=== PATIENT | male | born 1945 | race Caucasian/White ===

== ENCOUNTER 2018-09-15 14:26 | Emergency (ER) | payer MEDICARE ==
--- NOTE | 2018-09-15 14:48 | ED ---
GI/ HPI - HPI Summary HPI Summary: This pt is a 72 y/o male presenting to [facility] c/o difficulty voiding. Pt reports he has had a hard time voiding for "quite a while now." He notes it has been worsening lately. He states he passed urine a few minutes ago [employer] and "urine just dribbles out." Additionally reports slight burning with urination and lower abd discomfort. Denies fever, chills, nausea, vomiting. Denies hx of BPH. Pt does not have a urologist. - History of Current Complaint Chief Complaint: EDUrogenitalProblems Time Seen by Provider: 09/15/18 14:28 Stated Complaint: HARD TIME PASSING URINE PER PT Hx Obtained From: Patient Onset/Duration: Started Weeks Ago, Still Present Timing: Lasting Weeks Current Severity: Moderate Pain Intensity: 0 Location of Pain: Other - lower abd Associated Signs and Symptoms: Positive: Dysuria, Abdominal Pain, Other: - difficulty voiding. Negative: Nausea, Vomiting, Fever, Chills Aggravating Factor(s): Nothing Alleviating Factor(s): Nothing - Allergy/Home Medications Allergies/Adverse Reactions: Allergies Allergy/AdvReac Type Severity Reaction Status Date / Time MS Amoxicillin [From Amoxil] Allergy Intermediate Hives Verified 05/08/18 11:42 MS Sulfamethoxazole Allergy Intermediate Dizziness Verified 05/08/18 11:42 w/Trimethoprim [From Bactrim] Home Medications: Home Medications Allopurinol [Zyloprim 300 MG TAB] 300 mg PO DAILY 09/15/18 [History Confirmed ] Amantadine HCl [Amantadine] 100 mg PO BID 09/15/18 [History Confirmed 09/15/18] Atorvastatin* [Lipitor 10 MG*] 10 mg PO EVERY OTHER DAY 09/15/18 [History Confirmed 09/15/18] Rivaroxaban TAB(*) [Xarelto 20 mg] 20 mg PO DAILY 09/15/18 [History Confirmed ] Spironolactone 25 mg PO DAILY 09/15/18 [History Confirmed 09/15/18] Ubidecarenone [Coq10] 200 mg PO DAILY 09/15/18 [History Confirmed 09/15/18] PMH/Surg Hx/FS Hx/Imm Hx Endocrine/Hematology History: Denies: Hx Diabetes Cardiovascular History: Reports: Hx Hypercholesterolemia, Hx Hypertension - MEDICATED Denies: Hx Pacemaker/ICD Respiratory History: Denies: Hx Asthma, Hx Chronic Obstructive Pulmonary Disease (COPD) History: Denies: Hx Benign Prostatic Hyperplasia, Hx Renal Disease Sensory History: Denies: Hx Hearing Aid Psychiatric History: Denies: Hx Panic Disorder - Surgical History Surgery Procedure, Year, and Place: Rt KNEE - RECONSTRUCTION. Lt WRIST - ARTHROSCOPIC Infectious Disease History: No Infectious Disease History: Denies: Traveled Outside the [place] in Last 30 Days - Family History Known Family History: Negative: Cardiac Disease, Hypertension - Social History Alcohol Use: Occasionally Alcohol Amount: 2xweek Substance Use Type: Reports: None Smoking Status (MU): Never Smoked Tobacco Have You Smoked in the Last Year: No Review of Systems Negative: Fever, Chills Positive: Abdominal Pain. Negative: Vomiting, Nausea Genitourinary: Other - POS: difficulty voiding Positive: burning All Other Systems Reviewed And Are Negative: Yes Physical Exam - Summary Physical Exam Summary: VITAL SIGNS: Reviewed. GENERAL: Patient is a well-developed and nourished male who is lying comfortable in the stretcher. Patient is not in any acute respiratory distress. HEAD AND FACE: No signs of trauma. No ecchymosis, hematomas or skull depressions. No sinus tenderness. EYES: PERRLA, EOMI x 2, No injected conjunctiva, no nystagmus. EARS: Hearing grossly intact. Ear canals and tympanic membranes are within normal limits. MOUTH: Oropharynx within normal limits. NECK: Supple, trachea is midline, no adenopathy, no JVD, no carotid bruit, no c- spine tenderness, neck with full ROM. CHEST: Symmetric, no tenderness at palpation LUNGS: Clear to auscultation bilaterally. No wheezing or crackles. CVS: Regular rate and rhythm, S1 and S2 present, no murmurs or gallops appreciated. ABDOMEN: Soft, slight abdominal discomfort. Patient with abdominal distension. No rebound, no guarding, and no masses palpated. Bowel sounds are normal. EXTREMITIES: FROM in all major joints, no edema, no cyanosis or clubbing. NEURO: Alert and oriented x 3. No acute neurological deficits. Speech is normal and follows commands. SKIN: Dry and warm Triage Information Reviewed: Yes Vital Signs On Initial Exam: Initial Vitals Temp Pulse Resp BP Pulse Ox 98.7 F 91 18 150/94 97 09/15/18 14:36 09/15/18 14:36 09/15/18 14:36 09/15/18 14:36 09/15/18 14:36 Vital Signs Reviewed: Yes Diagnostics - Vital Signs Vital Signs Temp Pulse Resp BP Pulse Ox 09/15/18 14:36 98.7 F 91 18 150/94 97 - Laboratory Lab Statement: Any lab studies that have been ordered have been reviewed, and results considered in the medical decision making process. Re-Evaluation - Re-Evaluation First Eval Re-Evaluation Time: 15:38 Comment: Pt will be discharged home with follow up from urology. GIGU Course/Dx - Course Assessment/Plan: Patient is a 72-year-old male who presents to the emergency department with a chief complaint of having difficulty urinating. The patient has been having the symptoms for the last couple months and today he is unable to pass urine only a couple drops here and there. The patient has some mild to moderate discomfort secondary to distention. In the ED we placed a arthur catheter and we were able to collect approximately 500 cc of urine. The urinalysis is negative for UTI. The patient was discharged home with a urine Arthur catheter in place with a leg bag and follow-up with urology. Patient is feeling better and he is hemodynamically stable. - Diagnoses Provider Diagnoses: Urinary retention Discharge - Sign-Out/Discharge Documenting (check all that apply): Patient Departure - Discharge home Patient Received Moderate/Deep Sedation with Procedure: No - Discharge Plan Condition: Stable Disposition: HOME Patient Education Materials: Urinary Retention in Men (ED) Referrals: Marv Gibbons MD [Primary Care Provider] - Michael Iyer MD [Medical Doctor] - Additional Instructions: Follow up with urologist, Dr. Iyer. FOLLOW UP WITH YOUR PRIMARY CARE PROVIDER IN 2-3 DAYS. RETURN TO THE ED FOR ANY NEW OR WORSENING SYMPTOMS. - Billing Disposition and Condition Condition: STABLE Disposition: Home - Attestation Statements Document Initiated by Scribe: Yes Documenting Scribe: Sandi Dill Provider For Whom Meme is Documenting (Include Credential): Gary Jha MD Scribe Attestation: Sandi Baez, scribed for Gary Jha MD on 09/15/18 at 1847. Scribe Documentation Reviewed: Yes Provider Attestation: The documentation as recorded by the muniraibe, Sandi Dill accurately reflects the service I personally performed and the decisions made by me, Gary Jha MD Status of Meme Document: Viewed
--- OUTSIDE RECORDS SUMMARY | 2018-09-15 14:52 | XMS REPORT | Continuity of Care Document ---
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 Active Onset: 06/04/2018 Degeneration of lumbar Trace Garrido M.D. Active intervertebral disc Onset: 01/01/2017 Difficulty breathing Koki Gerardo MD Resolved Resolved: 07/07/2018 Onset: 03/14/2018 Chronic fatigue syndrome Yuval Kessler M.D. 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 Allergies, Adverse Reactions, Alerts Date Description Reaction Status Severity Comments 07/23/2016 Amoxil, trimox Active hives 07/23/2016 Seasonal Active Medications Medication Date Status Form Strength Qnty SIG Indications Ordering Provider Amantadine HCL 09/13/19 Active Tablets 100mg 60tab 1 by Yuval Patel s maryan Kessler M.D. two times a day Atorvastatin 04/29/20 Active Tablets 10mg 30tab 1 by E78.00 Wang Gutierrez 17 s maryan Cruz M.D. every other day Xarelto 04/08/20 Active Tablets 20mg 30tab 1 by I48.2 Wang Padilla 17 s mouth Nallely Cruz every day Spironolactone 04/08/20 Active Tablets 25mg 30tab 1 by I10 Wang Meeks s maryan Cruz M.D. every day Tylenol 8 Hour 04/07/20 Active Tablets 650mg 1 by Unknown 17 ER mouth three times a day as needed for pain Multi Vitamin 04/07/20 Active Tablets 1 by Unknown 17 mouth every day Allopurinol 01/30/20 Active Tablets 300mg 30tab 1 by Marv Constantino s maryan Hale M.D. every day Co Q10 Maximum Active Capsules 200mg 1 by Unknown Strength 00 mouth every day Amantadine HCL 07/28/19 Hx Capsules 100mg 30cap One Eddy 19 - s tablet Durand, 09/13/19 in N.P. 19 morning Azilect 07/24/19 Hx Tablets 1mg 30tab 1 by G20 Yuval Kessler M.D. 07/28/19 every 19 day Ropinirole HCL 07/11/19 Hx Tablets 0.25mg 90tab Take 1 G20 Yuval Patel - s tablet Ramiro Kessler M.D. 07/23/19 times a 19 day at mealtime Carbidopa-Levod 06/23/20 Hx Tablets 25-100mg 45tab 1/2 pill G20 Yuval opa 18 - s tyree Kessler M.D. 07/11/19 times a 19 day, 30 min prior to meals Nadolol 04/29/20 Hx Tablets 40mg 1/2 tab E78.00 Wang Meeks - po daily Nallely Cruz 06/26/19 for 19 tremors Advil 01/02/20 Hx Capsules 200mg 1-2 po Koki Gerardo MD 04/07/20 needed 17 Allopurinol 09/30/19 Hx Tablets 100mg 90tab please Marv negrete take 2 Nallely Hale 01/30/20 tabs 17 daily ongoing Klor-Con M20 09/20/19 Hx Tablets 20Meq 90tab 1 by Wang Munoz ER s mouth Nallely Cruz 04/08/20 every 17 day Colchicine 08/16/19 Hx Tablets 0.6mg 14tab take one M25.532 Marv negrete tablet Nallely Hale 04/30/20 by mouth 18 twice a day as needed for pain from gout attack Prednisone Hx Tablets 20mg 2 by Unknown 00 - mouth 08/13/19 every 17 day as needed Viagra Hx Tablets 50mg 1 by Unknown 00 - mouth as Unknown needed Nadolol Hx Tablets 40mg 1/2 po Unknown 00 - qd until 04/07/20 03/23/17 17 and then 03/25 and 03/27 and 03/29 and then disconti nue. Zetia Hx Tablets 10mg 1 by Unknown 00 - mouth 04/29/20 every 17 day Chlorthalidone Hx Tablets 25mg 1 by Unknown 00 - mouth 04/08/20 every 17 day Aspirin Ec Hx Tablets 81mg 1 by Unknown 00 - DR mouth 04/08/20 every 17 day Flexeril Hx Tablets 10mg 1 po bid Unknown 00 - 04/07/20 17 Aspirin Adult Hx Tablets 81mg 1 by Unknown Low Dose 00 - DR mouth Unknown every day Immunizations Description No Information Available Vital Signs Date Vital Result Comment 09/12/2018 1:11pm Height 74 inches 6'2" Weight 225.00 lb Heart Rate 95 /min BP Systolic Sitting 142 mmHg BP Diastolic Sitting 82 mmHg Respiratory Rate 18 /min BMI (Body Mass Index) 28.9 kg/m2 08/20/2018 11:30am Height 74 inches 6'2" Weight 233.25 lb with shoes Heart Rate 88 /min BP Systolic Sitting 144 mmHg ule reg cuff BP Diastolic Sitting 74 mmHg ule reg cuff BP Systolic Standing 132 mmHg BP Diastolic Standing 70 mmHg BMI (Body Mass Index) 29.9 kg/m2 Ejection Fraction REF 67% stress test 10/19/16 07/24/2018 1:51pm Height 74 inches 6'2" Weight 225.00 lb Heart Rate 72 /min BP Systolic 144 mmHg BP Diastolic 78 mmHg BMI (Body Mass Index) 28.9 kg/m2 07/16/2018 2:12pm Height 74 inches 6'2" Weight 238.00 lb Heart Rate 78 /min BP Systolic Sitting 162 mmHg BP Diastolic Sitting 80 mmHg Respiratory Rate 18 /min Body Temperature 98.5 F BMI (Body Mass Index) 30.6 kg/m2 07/07/2018 8:03am Height 74 inches 6'2" Weight 238.56 lb Heart Rate 73 /min BP Systolic Sitting 128 mmHg BP Diastolic Sitting 80 mmHg Pain Level 2 O2 % BldC Oximetry 98 % BMI (Body Mass Index) 30.6 kg/m2 06/23/2018 8:45am Height 74 inches 6'2" Weight 231.00 lb Heart Rate 58 /min BP Systolic 126 mmHg BP Diastolic 72 mmHg Respiratory Rate 14 /min BMI (Body Mass Index) 29.7 kg/m2 06/04/2018 3:05pm Height 74 inches 6'2" Weight 232.00 lb BP Systolic Sitting 124 mmHg BP Diastolic Sitting 78 mmHg Pain Level 4 BMI (Body Mass Index) 29.8 kg/m2 05/01/2018 10:46am Height 74 inches 6'2" Weight 237.38 lb with shoes Heart Rate 64 /min BP Systolic Sitting 150 mmHg BP Diastolic Sitting 76 mmHg BP Systolic Standing 118 mmHg la repeat sit BP Diastolic Standing 77 mmHg la repeat sit BMI (Body Mass Index) 30.5 kg/m2 Ejection Fraction 55-60% echocardiogram 09/13/16 04/22/2018 8:55am Height 74 inches 6'2" Weight 234.38 lb Heart Rate 58 /min BP Systolic Sitting 142 mmHg Lue large cuff BP Diastolic Sitting 78 mmHg Lue large cuff Respiratory Rate 16 /min O2 % BldC Oximetry 98 % On Ra BMI (Body Mass Index) 30.1 kg/m2 03/14/2018 3:07pm Height 74 inches 6'2" Weight 232.00 lb Heart Rate 82 /min BP Systolic Sitting 138 mmHg BP Diastolic Sitting 80 mmHg Respiratory Rate 15 /min BMI (Body Mass Index) 29.8 kg/m2 01/02/2018 7:55am Height 74 inches 6'2" Weight 251.00 lb Heart Rate 79 /min BP Systolic Sitting 133 mmHg BP Diastolic Sitting 87 mmHg Respiratory Rate 14 /min Pain Level 3 BMI (Body Mass Index) 32.2 kg/m2 10/22/2017 9:15am Height 74 inches 6'2" Weight 253.50 lb Heart Rate 68 /min BP Systolic Sitting 136 mmHg Lue large cuff BP Diastolic Sitting 80 mmHg Lue large cuff Respiratory Rate 16 /min O2 % BldC Oximetry 95 % On Ra BMI (Body Mass Index) 32.5 kg/m2 08/20/2017 1:54pm Height 74 inches 6'2" Weight 258.00 lb w/ shoes Heart Rate 66 /min reg BP Systolic Sitting 130 mmHg Lue BP Diastolic Sitting 90 mmHg Lue Respiratory Rate 16 /min BMI (Body Mass Index) 33.1 kg/m2 Ejection Fraction 55-60% as of 09/07 echo 08/20/2017 8:22am Height 74 inches 6'2" Weight 254.00 lb Heart Rate 62 /min BP Systolic Sitting 128 mmHg BP Diastolic Sitting 72 mmHg Respiratory Rate 14 /min BMI (Body Mass Index) 32.6 kg/m2 06/07/2017 8:42am Height 74 inches 6'2" Weight 266.50 lb with shoes Heart Rate 82 /min BP Systolic Sitting 140 mmHg Rue large cuff BP Diastolic Sitting 90 mmHg Rue large cuff Respiratory Rate 16 /min O2 % BldC Oximetry 98 % On Ra BMI (Body Mass Index) 34.2 kg/m2 06/04/2017 8:05am Height 74 inches 6'2" Weight 264.50 lb Heart Rate 64 /min BP Systolic Sitting 134 mmHg BP Diastolic Sitting 78 mmHg Respiratory Rate 14 /min Pain Level 4 BMI (Body Mass Index) 34.0 kg/m2 05/20/2017 1:19pm Height 74 inches 6'2" Heart Rate 66 /min BP Systolic 146 mmHg LA, large cuff BP Diastolic 80 mmHg LA, large cuff BP Systolic Sitting 136 mmHg Ra, large cuff BP Diastolic Sitting 78 mmHg Ra, large cuff BP Systolic Standing 132 mmHg LA, large cuff BP Diastolic Standing 78 mmHg LA, large cuff 04/29/2017 1:47pm Height 74 inches 6'2" Weight 266.75 lb with shoes Heart Rate 90 /min BP Systolic 163 mmHg home cuff BP Diastolic 101 mmHg home cuff BP Systolic Sitting 148 mmHg Ra reg cuff BP Diastolic Sitting 82 mmHg Ra reg cuff BMI (Body Mass Index) 34.2 kg/m2 Ejection Fraction 67% Nem 10/19/16 04/08/2017 8:21am Height 74 inches 6'2" Weight 260.25 lb Heart Rate 88 /min BP Systolic Sitting 142 mmHg LA reg cuff BP Diastolic Sitting 88 mmHg LA reg cuff BMI (Body Mass Index) 33.4 kg/m2 Ejection Fraction 55% - 60% echo 09/13/16 03/08/2017 9:14am Height 74 inches 6'2" Weight 268.00 lb w/ shoes Heart Rate 62 /min reg BP Systolic Sitting 120 mmHg Rue, lg cuff BP Diastolic Sitting 76 mmHg Rue, lg cuff Respiratory Rate 16 /min O2 % BldC Oximetry 99 % on Ra BMI (Body Mass Index) 34.4 kg/m2 03/07/2017 8:25am Heart Rate 64 /min BP Systolic Sitting 132 mmHg lue large cuff BP Diastolic Sitting 72 mmHg lue large cuff Respiratory Rate 18 /min Ejection Fraction 67% stress echi 10/19/16 01/29/2017 9:36am Height 74 inches 6'2" Weight 268.12 lb Heart Rate 60 /min BP Systolic Sitting 124 mmHg BP Diastolic Sitting 80 mmHg Respiratory Rate 14 /min Pain Level 2 BMI (Body Mass Index) 34.4 kg/m2 01/25/2017 9:49am Height 74 inches 6'2" Weight 267.00 lb Heart Rate 64 /min BP Systolic Sitting 122 mmHg BP Diastolic Sitting 88 mmHg Respiratory Rate 14 /min O2 % BldC Oximetry 99 % BMI (Body Mass Index) 34.3 kg/m2 01/01/2017 2:11pm Height 74 inches 6'2" Weight 294.00 lb Heart Rate 76 /min irregular BP Systolic 110 mmHg BP Diastolic 82 mmHg Respiratory Rate 16 /min Pain Level 0 BMI (Body Mass Index) 37.7 kg/m2 11/23/2016 10:57am Height 73 inches 6'1" Weight 270.38 lb Heart Rate 64 /min BP Systolic 134 mmHg BP Diastolic 70 mmHg Respiratory Rate 14 /min Pain Level 2 BMI (Body Mass Index) 35.7 kg/m2 10/24/2016 8:19am Height 73 inches 6'1" Weight 269.25 lb with sneakers Heart Rate 60 /min BP Systolic Sitting 134 mmHg LA lrg cuff BP Diastolic Sitting 84 mmHg LA lrg cuff BMI (Body Mass Index) 35.5 kg/m2 Ejection Fraction 55% - 60% echo 09/13/16 10/02/2016 8:56am Height 73 inches 6'1" Heart Rate 64 /min irregular BP Systolic Sitting 128 mmHg Ra, regular BP Diastolic Sitting 74 mmHg Ra, regular 09/19/2016 10:31am Height 73 inches 6'1" Weight 271.00 lb Heart Rate 70 /min BP Systolic Sitting 134 mmHg BP Diastolic Sitting 80 mmHg Body Temperature 97.3 F Pain Level 7 BMI (Body Mass Index) 35.8 kg/m2 08/23/2016 8:54am Height 73 inches 6'1" Weight 277.00 lb w/shoes Heart Rate 58 /min BP Systolic Sitting 160 mmHg LA lg cuff BP Diastolic Sitting 94 mmHg LA lg cuff BP Systolic Standing 131 mmHg la repeat sitting. BP Diastolic Standing 82 mmHg la repeat sitting. BMI (Body Mass Index) 36.5 kg/m2 08/16/2016 8:41am Height 73 inches 6'1" Weight 276.38 lb Heart Rate 60 /min BP Systolic Sitting 130 mmHg irregular BP Diastolic Sitting 78 mmHg irregular Body Temperature 97.3 F O2 % BldC Oximetry 98 % BMI (Body Mass Index) 36.5 kg/m2 07/23/2016 9:05am Height 73 inches 6'1" Weight 279.38 lb Heart Rate 64 /min BP Systolic Sitting 110 mmHg BP Diastolic Sitting 70 mmHg Respiratory Rate 14 /min Body Temperature 96.6 F Pain Level 2 BMI (Body Mass Index) 36.9 kg/m2 Results Test Date Facility Test Result H/L Range Note Comp Metabolic Panel 07/03/2018 [facility] Sodium 138 mmol/L N 135-[address] [place] [address] [phone] Potassium 4.0 mmol/L N 3.5-5.0 Chloride 100 mmol/L Low 101-111 Co2 Carbon Dioxide 31 mmol/L N 22-32 Anion Gap 7 mmol/L N 2-11 Glucose 98 mg/dL N 70-100 Blood Urea Nitrogen 17 mg/dL N 6-24 Creatinine 0.81 mg/dL N 0.67-1.17 BUN/Creatinine Ratio 21.0 High 8-20 Calcium 9.9 mg/dL N 8.6-10.3 Total Protein 7.5 g/dL N 6.4-8.9 Albumin 4.3 g/dL N 3.2-5.2 Globulin 3.2 g/dL N 2-4 Albumin/Globulin Ratio 1.3 N 1-3 Total Bilirubin 1.00 mg/dL N 0.2-1.0 Alkaline Phosphatase 76 U/L N 34-104 Alt 6 U/L Low 7-52 Ast 18 U/L N 13-39 Egfr Non- 93.9 >60 Egfr 113.7 >60 1 CBC Auto Diff 07/03/2018 [facility] White Blood 8.1 10^3/uL N 3.5-10.[address] [place] [address] [phone] Red Blood Count 5.25 10^6/uL N 4.00-5.40 Hemoglobin 15.5 g/dL N 14.0-18.0 Hematocrit 46 % N 42-52 Mean Corpuscular Volume 88 fL N 80-94 Mean Corpuscular Hemoglobin 30 pg N 27-31 Mean Corpuscular HGB Conc 34 g/dL N 31-36 Red Cell Distribution Width 15 % N 10.5-15 Platelet Count 249 10^3/uL N 150-450 Mean Platelet Volume 8.1 fL N 7.4-10.4 Abs Neutrophils 5.1 10^3/uL N 1.5-7.7 Abs Lymphocytes 1.8 10^3/uL N 1.0-4.8 Abs Monocytes 0.8 10^3/uL N 0-0.8 Abs Eosinophils 0.3 10^3/uL N 0-0.6 Abs Basophils 0.1 10^3/uL N 0-0.2 Abs Nucleated RBC 0 10^3/uL Granulocyte % 63.1 % Lymphocyte % 21.8 % Monocyte % 10.2 % Eosinophil % 4.2 % Basophil % 0.7 % Nucleated Red Blood Cells % 0 Laboratory test 07/03/2018 [facility] Uric Acid 3.6 mg/dL Low 4.4-7.[address] [place] [address] [phone] Vitamin B12 And 05/20/2018 [facility] Vitamin B12 589 pg/mL N 180-914 [address] [place] [address] [phone] Folic Acid (Folate) > 20.00 ng/mL >3.99 Laboratory test 05/20/2018 [facility] TSH (Thyroid <pending> finding [address] Stim Horm) [place] [address] [phone] Free T4 (Free Thyroxine) 0.87 ng/dL N 0.61-1.12 CBC Auto Diff 05/20/2018 [facility] White Blood 6.7 10^3/uL N 3.5-10.[address] [place] [address] [phone] Red Blood Count 5.12 10^6/uL N 4.00-5.40 Hemoglobin 15.2 g/dL N 14.0-18.0 Hematocrit 45 % N 42-52 Mean Corpuscular Volume 88 fL N 80-94 Mean Corpuscular Hemoglobin 30 pg N 27-31 Mean Corpuscular HGB Conc 34 g/dL N 31-36 Red Cell Distribution Width 15 % N 10.5-15 Platelet Count 211 10^3/uL N 150-450 Mean Platelet Volume 8.1 fL N 7.4-10.4 Abs Neutrophils 4.1 10^3/uL N 1.5-7.7 Abs Lymphocytes 1.5 10^3/uL N 1.0-4.8 Abs Monocytes 0.7 10^3/uL N 0-0.8 Abs Eosinophils 0.3 10^3/uL N 0-0.6 Abs Basophils 0 10^3/uL N 0-0.2 Abs Nucleated RBC 0 10^3/uL Granulocyte % 61.7 % Lymphocyte % 22.3 % Monocyte % 11.0 % Eosinophil % 4.4 % Basophil % 0.6 % Nucleated Red Blood Cells % 0.1 Lipid Panel - 05/20/2018 [facility] Creatine 25 U/L N 10-[address] Kinase(CK) [place] [address] [phone] Comp Metabolic 05/20/2018 [facility] Sodium 139 N 135-[address] mmol/[place] [address] [phone] Potassium 4.1 mmol/L N 3.5-5.0 Chloride 102 mmol/L N 101-111 Co2 Carbon Dioxide 31 mmol/L N 22-32 Anion Gap 6 mmol/L N 2-11 Glucose 99 mg/dL N 70-100 Blood Urea Nitrogen 17 mg/dL N 6-24 Creatinine 0.81 mg/dL N 0.67-1.17 BUN/Creatinine Ratio 21.0 High 8-20 Calcium 10.0 mg/dL N 8.6-10.3 Total Protein 7.3 g/dL N 6.4-8.9 Albumin 4.2 g/dL N 3.2-5.2 Globulin 3.1 g/dL N 2-4 Albumin/Globulin Ratio 1.4 N 1-3 Total Bilirubin 1.00 mg/dL N 0.2-1.0 Alkaline Phosphatase 72 U/L N 34-104 Alt 12 U/L N 7-52 Ast 16 U/L N 13-39 Egfr Non- 93.9 >60 Egfr 113.7 >60 3 Lipid Profile 05/20/2018 [facility] Triglycerides 107 mg/dL 4 (Trig/Chol/HDL) [facility] [place] [address] [phone] Cholesterol 134 mg/dL 5 HDL Cholesterol 39.6 mg/dL 6 LDL Cholesterol 73 mg/dL 7 Laboratory test 05/20/2018 [facility] TSH (Thyroid 2.54 mcIU/mL N 0.34-5.[address] [facility] Stim Horm) [place] [address] [phone] Laboratory test 05/20/2018 [facility] Copper, Serum 1.05 g/mL 0.75-1.45 [address] [place] [address] [phone] Ceruloplasmin 24.5 mg/dL 9 Laboratory test 12/30/2017 [facility] Uric Acid 3.6 mg/dL Low 4.4-7.6 [place] [address] [phone] CBC Auto Diff 12/30/2017 [facility] White Blood 8.2 10^3/uL N 3.5-10.[address] [facility] [place] [address] [phone] Red Blood Count 5.19 10^6/uL N 4.00-5.40 Hemoglobin 15.5 g/dL N 14.0-18.0 Hematocrit 45 % N 42-52 Mean Corpuscular Volume 87 fL N 80-94 Mean Corpuscular Hemoglobin 30 pg N 27-31 Mean Corpuscular HGB Conc 34 g/dL N 31-36 Red Cell Distribution Width 15 % N 10.5-15 Platelet Count 245 10^3/uL N 150-450 Mean Platelet Volume 8.2 um3 N 7.4-10.4 Abs Neutrophils 5.0 10^3/uL N 1.5-7.7 Abs Lymphocytes 1.8 10^3/uL N 1.0-4.8 Abs Monocytes 0.9 10^3/uL High 0-0.8 Abs Eosinophils 0.4 10^3/uL N 0-0.6 Abs Basophils 0 10^3/uL N 0-0.2 Abs Nucleated RBC 0 10^3/uL Granulocyte % 61.6 % N 38-83 Lymphocyte % 21.7 % Low 25-47 Monocyte % 11.5 % High 0-7 Eosinophil % 4.7 % N 0-6 Basophil % 0.5 % N 0-2 Nucleated Red Blood Cells % 0 Comp Metabolic Panel 12/30/2017 [facility] Sodium 138 mmol/L N 135-145 [address] [place] [address] [phone] Potassium 4.5 mmol/L N 3.5-5.0 Chloride 99 mmol/L Low 101-111 Co2 Carbon Dioxide 31 mmol/L N 22-32 Anion Gap 8 mmol/L N 2-11 Glucose 102 mg/dL High 70-100 Blood Urea Nitrogen 17 mg/dL N 6-24 Creatinine 0.90 mg/dL N 0.67-1.17 BUN/Creatinine Ratio 18.9 N 8-20 Calcium 9.9 mg/dL N 8.6-10.3 Total Protein 7.7 g/dL N 6.4-8.9 Albumin 4.3 g/dL N 3.2-5.2 Globulin 3.4 g/dL N 2-4 Albumin/Globulin Ratio 1.3 N 1-3 Total Bilirubin 1.00 mg/dL N 0.2-1.0 Alkaline Phosphatase 64 U/L N 34-104 Alt 13 U/L N 7-52 Ast 15 U/L N 13-39 Egfr Non- 83.2 >60 Egfr 100.7 >60 10 Lipid Panel - 06/03/2017 [facility] Creatine 35 U/L N 10-[address] Kinase(CK) [place] [address] [phone] Comp Metabolic 06/03/2017 [facility] Sodium 139 N 133-[address] mmol/[place] [address] [phone] Potassium 4.2 mmol/L N 3.5-5.0 Chloride 103 mmol/L N 101-111 Co2 Carbon Dioxide 28 mmol/L N 22-32 Anion Gap 8 mmol/L N 2-11 Glucose 103 mg/dL High 70-100 Blood Urea Nitrogen 19 mg/dL N 6-24 Creatinine 0.98 mg/dL N 0.67-1.17 BUN/Creatinine Ratio 19.4 N 8-20 Calcium 9.7 mg/dL N 8.6-10.3 Total Protein 7.3 g/dL N 6.4-8.9 Albumin 4.1 g/dL N 3.2-5.2 Globulin 3.2 g/dL N 2-4 Albumin/Globulin Ratio 1.3 N 1-3 Total Bilirubin 0.90 mg/dL N 0.2-1.0 Alkaline Phosphatase 77 U/L N 34-104 Alt 18 U/L N 7-52 Ast 23 U/L N 13-39 Egfr Non- 75.6 >60 Egfr 97.2 >60 11 Lipid Profile 06/03/2017 [facility] Triglycerides 99 mg/dL 12 (Trig/Chol/HDL) [address] [place] [address] [phone] Cholesterol 152 mg/dL 13 HDL Cholesterol 29.0 mg/dL 14 LDL Cholesterol 103 mg/dL 15 Laboratory test 05/29/2017 [facility] Uric Acid 4.0 mg/dL Low 4.4-7.[address] [place] [address] [phone] Erythrocyte Sed Rate 22 mm/Hr N 0-40 C Reactive Protein 9.21 mg/L High < 5.00 16 Comp Metabolic Panel 05/29/2017 [facility] Sodium 135 mmol/L N 133-[address] [place] [address] [phone] Potassium 4.2 mmol/L N 3.5-5.0 Chloride 100 mmol/L Low 101-111 Co2 Carbon Dioxide 28 mmol/L N 22-32 Anion Gap 7 mmol/L N 2-11 Glucose 97 mg/dL N 70-100 Blood Urea Nitrogen 16 mg/dL N 6-24 Creatinine 1.00 mg/dL N 0.67-1.17 BUN/Creatinine Ratio 16.0 N 8-20 Calcium 9.5 mg/dL N 8.6-10.3 Total Protein 7.5 g/dL N 6.4-8.9 Albumin 4.2 g/dL N 3.2-5.2 Globulin 3.3 g/dL N 2-4 Albumin/Globulin Ratio 1.3 N 1-3 Total Bilirubin 1.00 mg/dL N 0.2-1.0 Alkaline Phosphatase 79 U/L N 34-104 Alt 13 U/L N 7-52 Ast 18 U/L N 13-39 Egfr Non- 73.9 >60 Egfr 95.0 >60 17 CBC Auto Diff 05/29/2017 [facility] White Blood 5.3 10^3/uL N 3.5-10.[address] [place] [address] [phone] Red Blood Count 5.38 10^6/uL N 4.0-5.4 Hemoglobin 15.5 g/dL N 14.0-18.0 Hematocrit 46 % N 42-52 Mean Corpuscular Volume 86 fL N 80-94 Mean Corpuscular Hemoglobin 29 pg N 27-31 Mean Corpuscular HGB Conc 34 g/dL N 31-36 Red Cell Distribution Width 16 % High 10.5-15 Platelet Count 182 10^3/uL N 150-450 Mean Platelet Volume 8 um3 N 7.4-10.4 Abs Neutrophils 3.4 10^3/uL N 1.5-7.7 Abs Lymphocytes 0.8 10^3/uL Low 1.0-4.8 Abs Monocytes 1.0 10^3/uL High 0-0.8 Abs Eosinophils 0.1 10^3/uL N 0-0.6 Abs Basophils 0 10^3/uL N 0-0.2 Abs Nucleated RBC 0.02 10^3/uL Granulocyte % 64.2 % N 38-83 Lymphocyte % 14.9 % Low 25-47 Monocyte % 18.7 % High 1-9 Eosinophil % 1.6 % N 0-6 Basophil % 0.6 % N 0-2 Nucleated Red Blood Cells % 0.4 Lipid Panel - 04/22/2017 [facility] Creatine 29 U/L N 10-[address] Kinase(CK) [place] [address] [phone] Comp Metabolic 04/22/2017 [facility] Sodium 136 N 133-[address] mmol/[place] [address] [phone] Potassium 3.8 mmol/L N 3.5-5.0 Chloride 101 mmol/L N 101-111 Co2 Carbon Dioxide 29 mmol/L N 22-32 Anion Gap 6 mmol/L N 2-11 Glucose 92 mg/dL N 70-100 Blood Urea Nitrogen 15 mg/dL N 6-24 Creatinine 0.98 mg/dL N 0.67-1.17 BUN/Creatinine Ratio 15.3 N 8-20 Calcium 9.8 mg/dL N 8.6-10.3 Total Protein 7.5 g/dL N 6.4-8.9 Albumin 4.0 g/dL N 3.2-5.2 Globulin 3.5 g/dL N 2-4 Albumin/Globulin Ratio 1.1 N 1-3 Total Bilirubin 1.00 mg/dL N 0.2-1.0 Alkaline Phosphatase 83 U/L N 34-104 Alt 12 U/L N 7-52 Ast 17 U/L N 13-39 Egfr Non- 75.6 N >60 Egfr 97.2 N >60 18 Lipid Profile 04/22/2017 [facility] Triglycerides 156 mg/dL N 19 (Trig/Chol/HDL) [address] [place] [address] [phone] Cholesterol 197 mg/dL N 20 HDL Cholesterol 36.7 mg/dL N 21 LDL Cholesterol 129 mg/dL N 22 Comp Metabolic Panel 01/25/2017 [facility] Sodium 134 mmol/L N 133-[address] [place] [address] [phone] Potassium 3.8 mmol/L N 3.5-5.0 Chloride 96 mmol/L Low 101-111 Co2 Carbon Dioxide 30 mmol/L N 22-32 Anion Gap 8 mmol/L N 2-11 Glucose 102 mg/dL High 70-100 Blood Urea Nitrogen 17 mg/dL N 6-24 Creatinine 1.04 mg/dL N 0.67-1.17 BUN/Creatinine Ratio 16.3 N 8-20 Calcium 9.4 mg/dL N 8.6-10.3 Total Protein 7.9 g/dL N 6.4-8.9 Albumin 4.1 g/dL N 3.2-5.2 Globulin 3.8 g/dL N 2-4 Albumin/Globulin Ratio 1.1 N 1-3 Total Bilirubin 1.00 mg/dL N 0.2-1.0 Alkaline Phosphatase 73 U/L N 34-104 Alt 16 U/L N 7-52 Ast 17 U/L N 13-39 Egfr Non- 70.6 N >60 Egfr 90.8 N >60 23 CBC Auto Diff 01/25/2017 [facility] [place] Blood 7.3 10^3/uL N 3.5-10.[address] [place] [address] [phone] Red Blood Count 5.68 10^6/uL High 4.0-5.4 Hemoglobin 16.4 g/dL N 14.0-18.0 Hematocrit 49 % N 42-52 Mean Corpuscular Volume 86 fL N 80-94 Mean Corpuscular Hemoglobin 29 pg N 27-31 Mean Corpuscular HGB Conc 34 g/dL N 31-36 Red Cell Distribution Width 15 % N 10.5-15 Platelet Count 219 10^3/uL N 150-450 Mean Platelet Volume 9 um3 N 7.4-10.4 Abs Neutrophils 4.3 10^3/uL N 1.5-7.7 Abs Lymphocytes 1.7 10^3/uL N 1.0-4.8 Abs Monocytes 1.1 10^3/uL High 0-0.8 Abs Eosinophils 0.3 10^3/uL N 0-0.6 Abs Basophils 0.1 10^3/uL N 0-0.2 Abs Nucleated RBC 0 10^3/uL N Granulocyte % 58.4 % N 38-83 Lymphocyte % 22.6 % Low 25-47 Monocyte % 14.4 % High 1-9 Eosinophil % 3.9 % N 0-6 Basophil % 0.7 % N 0-2 Nucleated Red Blood Cells % 0 N Laboratory test 01/25/2017 [facility] Uric Acid 6.1 mg/dL N 4.4-7.[address] [place] [address] [phone] Erythrocyte Sed Rate 14 mm/Hr N 0-40 C Reactive Protein 3.77 mg/L N < 5.00 24 Laboratory test 11/20/2016 [facility] Uric Acid 7.2 mg/dL N 4.4-7.[address] [place] [address] [phone] Laboratory test 09/19/2016 [facility] Body Fluid Monsodium N 25, [address] [address] [phone] Body Fluid C&S SEE RESULT BELOW 27 Body Fluid Cell 09/19/2016 [facility] Body Fluid Synovial Fluid N Count [address] [place] [address] [phone] Body Fluid WBC TNP /mcL N 28 Body Fluid RBC TNP /mcL N 29 Body Fluid Appearance Cloudy N Body Fluid Color Red N Body Fluid Volume 0.20 mL N Body Fluid Neutrophils 94 % N Body Fluid Lymph 1 % N Body Fluid [place] 5 % N Body Fluid Other Cells 4 N Body Fluid Total Cells Counted 100 N Body Fluid Comment (SEE NOTE) N 30 Fluid Reviewed By MD (SEE NOTE) N 31 Laboratory test 07/24/2016 [facility] Cyclic Citrullinated < 15.6 U N [address] [place] [address] [phone] Erythrocyte Sed Rate 39 mm/Hr N 0-40 C Reactive Protein 10.52 mg/L High < 5.00 33 Anca Panel For 07/24/2016 [facility] Myeloperoxidase AB < 0.2 U N [address] [place] [address] [phone] Proteinase 3 AB < 0.2 U N 35 Laboratory test 07/24/2016 [facility] Anti Nuclear 0.3 U N [address] [place] [address] [phone] Vitamin B12 415 pg/mL N 180-914 37 Creatine Kinase(CK) 32 U/L N 10-223 Hla B27 07/24/2016 [facility] Hla B27 Negative N [address] [place] [address] [phone] Hla B27 Interp See Comment N 39 Laboratory test 07/24/2016 [facility] Rheumatoid Factor <15 IU/ mL N <15 [address] [place] [address] [phone] Uric Acid 9.1 mg/dL High 4.4-7.6 CBC Auto Diff 07/24/2016 [facility] White Blood 7.6 10^3/uL N 3.5-10.[address] [place] [address] [phone] Red Blood Count 5.47 10^6/uL High 4.0-5.4 Hemoglobin 15.6 g/dL N 14.0-18.0 Hematocrit 47 % N 42-52 Mean Corpuscular Volume 85 fL N 80-94 Mean Corpuscular Hemoglobin 29 pg N 27-31 Mean Corpuscular HGB Conc 34 g/dL N 31-36 Red Cell Distribution Width 14 % N 10.5-15 Platelet Count 253 10^3/uL N 150-450 Mean Platelet Volume 9 um3 N 7.4-10.4 Abs Neutrophils 4.4 10^3/uL N 1.5-7.7 Abs Lymphocytes 1.8 10^3/uL N 1.0-4.8 Abs Monocytes 1.1 10^3/uL High 0-0.8 Abs Eosinophils 0.3 10^3/uL N 0-0.6 Abs Basophils 0.1 10^3/uL N 0-0.2 Abs Nucleated RBC 0 10^3/uL N Granulocyte % 57.6 % N 38-83 Lymphocyte % 24.2 % Low 25-47 Monocyte % 14.0 % High 1-9 Eosinophil % 3.3 % N 0-6 Basophil % 0.9 % N 0-2 Nucleated Red Blood Cells % 0.1 N Comp Metabolic Panel 07/24/2016 [facility] Sodium 136 mmol/L N 133-[address] [place] [address] [phone] Potassium 3.7 mmol/L N 3.5-5.0 Chloride 96 mmol/L Low 101-111 Co2 Carbon Dioxide 32 mmol/L N 22-32 Anion Gap 8 mmol/L N 2-11 Glucose 102 mg/dL High 70-100 Blood Urea Nitrogen 23 mg/dL N 6-24 Creatinine 1.16 mg/dL N 0.67-1.17 BUN/Creatinine Ratio 19.8 N 8-20 Calcium 9.8 mg/dL N 8.6-10.3 Total Protein 7.8 g/dL N 6.4-8.9 Albumin 4.1 g/dL N 3.2-5.2 Globulin 3.7 g/dL N 2-4 Albumin/Globulin Ratio 1.1 N 1-3 Total Bilirubin 0.90 mg/dL N 0.2-1.0 Alkaline Phosphatase 61 U/L N 34-104 Alt 11 U/L N 7-52 Ast 14 U/L N 13-39 Egfr Non- 62.4 N >60 Egfr 80.3 N >60 41 1 Because ethnic data is not always readily available, this report includes an eGFR for both -Americans and non- Americans. The National Kidney Disease Education Program (NKDEP) does not endorse the use of the MDRD equation for patients that are not between the ages of 18 and 70, are , have extremes of body size, muscle mass, or nutritional status, or are non- or non-. According to the National Kidney Foundation, irrespective of diagnosis, the stage of the disease is based on the level of kidney function: Stage Description GFR(mL/min/1.73 m(2)) 1 Kidney damage with normal or decreased GFR 90 2 Kidney damage with mild decrease in GFR 60-89 3 Moderate decrease in GFR 30-59 4 Severe decrease in GFR 15-29 5 Kidney failure <15 (or dialysis) 2 Normal Range 180 to 914 Indeterminate Range 145 to 180 Deficient Range <145 3 Because ethnic data is not always readily available, this report includes an eGFR for both -Americans and non- Americans. The National Kidney Disease Education Program (NKDEP) does not endorse the use of the MDRD equation for patients that are not between the ages of 18 and 70, are , have extremes of body size, muscle mass, or nutritional status, or are non- or non-. According to the National Kidney Foundation, irrespective of diagnosis, the stage of the disease is based on the level of kidney function: Stage Description GFR(mL/min/1.73 m(2)) 1 Kidney damage with normal or decreased GFR 90 2 Kidney damage with mild decrease in GFR 60-89 3 Moderate decrease in GFR 30-59 4 Severe decrease in GFR 15-29 5 Kidney failure <15 (or dialysis) 4 Desirable: <150 Borderline High: 150-199 High: 200-499 Very High: >500 5 Desirable: <200 Borderline High: 200-239 High: >239 6 Low: <40 Desirable: 40-60 High: >60 7 Desirable: <100 Near Optimal: 100-129 Borderline High: 130-159 High: 160-189 Very High: >189 8 ADDITIONAL INFORMATION This test was developed and its performance characteristics determined by [facility] in a manner consistent with CLIA requirements. This test has not been cleared or approved by the U.S. Food and Drug Administration. Test Performed by: [facility] [address] [place] [address] 9 REFERENCE VALUE 19.0 - 31.0 Test Performed by: [facility] - [address] [address] 10 Because ethnic data is not always readily available, this report includes an eGFR for both -Americans and non- Americans. The National Kidney Disease Education Program (NKDEP) does not endorse the use of the MDRD equation for patients that are not between the ages of 18 and 70, are , have extremes of body size, muscle mass, or nutritional status, or are non- or non-. According to the National Kidney Foundation, irrespective of diagnosis, the stage of the disease is based on the level of kidney function: Stage Description GFR(mL/min/1.73 m(2)) 1 Kidney damage with normal or decreased GFR 90 2 Kidney damage with mild decrease in GFR 60-89 3 Moderate decrease in GFR 30-59 4 Severe decrease in GFR 15-29 5 Kidney failure <15 (or dialysis) 11 Because ethnic data is not always readily available, this report includes an eGFR for both -Americans and non- Americans. The National Kidney Disease Education Program (NKDEP) does not endorse the use of the MDRD equation for patients that are not between the ages of 18 and 70, are , have extremes of body size, muscle mass, or nutritional status, or are non- or non-. According to the National Kidney Foundation, irrespective of diagnosis, the stage of the disease is based on the level of kidney function: Stage Description GFR(mL/min/1.73 m(2)) 1 Kidney damage with normal or decreased GFR 90 2 Kidney damage with mild decrease in GFR 60-89 3 Moderate decrease in GFR 30-59 4 Severe decrease in GFR 15-29 5 Kidney failure <15 (or dialysis) 12 Desirable: <150 Borderline High: 150-199 High: 200-499 Very High: >500 13 Desirable: <200 Borderline High: 200-239 High: >239 14 Low: <40 Desirable: 40-60 High: >60 15 Desirable: <100 Near Optimal: 100-129 Borderline High: 130-159 High: 160-189 Very High: >189 16 Acute inflammation: >10.00 17 Because ethnic data is not always readily available, this report includes an eGFR for both -Americans and non- Americans. The National Kidney Disease Education Program (NKDEP) does not endorse the use of the MDRD equation for patients that are not between the ages of 18 and 70, are , have extremes of body size, muscle mass, or nutritional status, or are non- or non-. According to the National Kidney Foundation, irrespective of diagnosis, the stage of the disease is based on the level of kidney function: Stage Description GFR(mL/min/1.73 m(2)) 1 Kidney damage with normal or decreased GFR 90 2 Kidney damage with mild decrease in GFR 60-89 3 Moderate decrease in GFR 30-59 4 Severe decrease in GFR 15-29 5 Kidney failure <15 (or dialysis) 18 Because ethnic data is not always readily available, this report includes an eGFR for both -Americans and non- Americans. The National Kidney Disease Education Program (NKDEP) does not endorse the use of the MDRD equation for patients that are not between the ages of 18 and 70, are , have extremes of body size, muscle mass, or nutritional status, or are non- or non-. According to the National Kidney Foundation, irrespective of diagnosis, the stage of the disease is based on the level of kidney function: Stage Description GFR(mL/min/1.73 m(2)) 1 Kidney damage with normal or decreased GFR 90 2 Kidney damage with mild decrease in GFR 60-89 3 Moderate decrease in GFR 30-59 4 Severe decrease in GFR 15-29 5 Kidney failure <15 (or dialysis) 19 Desirable: <150 Borderline High: 150-199 High: 200-499 Very High: >500 20 Desirable: <200 Borderline High: 200-239 High: >239 21 Low: <40 Desirable: 40-60 High: >60 22 Desirable: <100 Near Optimal: 100-129 Borderline High: 130-159 High: 160-189 Very High: >189 23 Because ethnic data is not always readily available, this report includes an eGFR for both -Americans and non- Americans. The National Kidney Disease Education Program (NKDEP) does not endorse the use of the MDRD equation for patients that are not between the ages of 18 and 70, are , have extremes of body size, muscle mass, or nutritional status, or are non- or non-. According to the National Kidney Foundation, irrespective of diagnosis, the stage of the disease is based on the level of kidney function: Stage Description GFR(mL/min/1.73 m(2)) 1 Kidney damage with normal or decreased GFR 90 2 Kidney damage with mild decrease in GFR 60-89 3 Moderate decrease in GFR 30-59 4 Severe decrease in GFR 15-29 5 Kidney failure <15 (or dialysis) 24 Acute inflammation: >10.00 25 [id number] What is the body fluid source?: Synovial (Joint) Fluid 27 SEE RESULT BELOW Name: CONSUELO DAVIS : [address]: Marv Hale MD Acct: [id number] Unit: [id number] AGE: 70 Location: [facility] Re09/19/16 SEX: M Status: REG REF SPEC: [id number] PIETER: 09/19/16-[address]: Marv Hale MD REQ: [id number] RECD: 09/19/16 STATUS: COMP _ SOURCE: JOINT FLUI SPDESC:WRIST RHT ORDERED: BF Cult/GS, MRSA/SA SSTI Procedure Result Reported Site Body Fluid Gram Stain Final 09/20/16- 0749 ML 4+ Neutrophils No Organisms Seen Preparation By Cytospin Smear Body Fluid Culture Final 09/23/16- 0852 ML No Growth Day 4 MRSA/S. aureus SSTI PCR Final 09/19/16- 1709 ML Organism 1 MRSA NEGATIVE Organism 2 S.AUREUS NEGATIVE * ML - [facility] ([facility]) . END OF REPORT * ML=Testing performed at [facility] DEPARTMENT OF PATHOLOGY, [address] [place] [address] Michael Lees M.D. Director [facility] # [id number] 28 Sample quantity insufficient to perform test requested. 29 Sample quantity insufficient to perform test requested. 30 Differential performed on concentrated smear. 31 Acute inflammation present. Recommend correlation with microbiology culture studies. Red cell contamination noted. Reviewed by Dr. Lees 32 REFERENCE VALUE <20.0 (Negative) Test Performed by: [place] [address] Generator Operator: Harlan Lopez II, M.D., Ph.D. 33 Acute inflammation: >10.00 34 REFERENCE VALUE <0.4 (Negative) 35 REFERENCE VALUE <0.4 (Negative) Test Performed by: [place] [address] Generator Operator: Harlan Lopez II, M.D., Ph.D. 36 REFERENCE VALUE <=1.0 (Negative) Test Performed by: [place] [address] Generator Operator: Harlan Lopez II, M.D., Ph.D. 37 Normal Range 180 to 914 Indeterminate Range 145 to 180 Deficient Range <145 38 REFERENCE VALUE Not Applicable 39 RESULT: HLA-B27 antigen was not detected. ADDITIONAL INFORMATION Method: Flow Cytometry Performing Laboratory CLIA# [id number] Test Performed by: [place] [address] Generator Operator: Harlan Lopez II, M.D., Ph.D. 40 Test Performed by: [place] [address] Generator Operator: Harlan Lopez II, M.D., Ph.D. 41 Because ethnic data is not always readily available, this report includes an eGFR for both -Americans and non- Americans. The National Kidney Disease Education Program (NKDEP) does not endorse the use of the MDRD equation for patients that are not between the ages of 18 and 70, are , have extremes of body size, muscle mass, or nutritional status, or are non- or non-. According to the National Kidney Foundation, irrespective of diagnosis, the stage of the disease is based on the level of kidney function: Stage Description GFR(mL/min/1.73 m(2)) 1 Kidney damage with normal or decreased GFR 90 2 Kidney damage with mild decrease in GFR 60-89 3 Moderate decrease in GFR 30-59 4 Severe decrease in GFR 15-29 5 Kidney failure <15 (or dialysis) Procedures Date Code Description Status 08/27/2018 01932 ECHO Transthoracic, Real-Time 2D With Doppler And Color Completed Flow 08/27/2018 61668 ECHO Transthoracic, Real-Time 2D With Doppler And Color Completed Flow 08/20/2018 79978 EKG Tracing & Interpretation Completed 05/01/2018 16840 EKG Tracing & Interpretation Completed 08/20/2017 87519 EKG Tracing & Interpretation Completed 03/23/2017 52444 Holter Monitor Review (24 hr)dr review & interp only Completed 03/21/2017 43534 ECG Monitor/Recording W/Visual Superimposition Scanning Completed 03/07/2017 37371 EKG Tracing & Interpretation Completed 03/04/2017 45390 Holter Monitor Review (24 hr)dr review & interp only Completed 02/28/2017 42245 ECG Monitor/Recording W/Visual Superimposition Scanning Completed 01/17/2017 77196 Sleep Study Unattended,HRT Rate,Oxygen Sat,Resp Completed Effort/Airflow 01/10/2017 00840 Sleep Study Unattended,HRT Rate,Oxygen Sat,Resp Completed Effort/Airflow 10/19/2016 78969 Treadmill Interp/Report Only Completed 10/19/2016 72623 Stress Test Supervsn W/Out I/R Completed 10/17/2016 29130 Holter Monitor Review (24 hr)dr review & interp only Completed 10/15/2016 00703 ECG Monitor/Recording W/Visual Superimposition Scanning Completed 09/22/2016 85190 Holter Monitor Review (24 hr) review & interp only Completed 09/20/2016 43946 ECG Monitor/Recording W/Visual Superimposition Scanning Completed 09/19/2016 35968 Inject/Drain Joint/Bursa Intermediate W/O US Completed 09/13/2016 02565 ECHO Transthoracic, Real-Time 2D With Doppler And Color Completed Flow 08/23/2016 90954 EKG Tracing & Interpretation Completed Encounters Type Date Location Provider Dx Diagnosis Office Visit 09/12/2018 [facility] Yuval Kessler, G20 Parkinson' s 1:15p [facility] Browning disease Office Visit 08/20/2018 [facility] Wang Cruz, G20 Parkinson's 11:40a MMely disease I48.2 Chronic atrial fibrillation E78.00 Pure hypercholesterolemia, unspecified I10 Essential (primary) hypertension G47.33 Obstructive sleep apnea (adult) (pediatric) K42.9 Umbilical hernia without obstruction or gangrene I27.20 Pulmonary hypertension, unspecified Office Visit 07/24/2018 [facility] Yuval Kessler, G2Augustina Parkinson' s 2:00p [facility] disease Office Visit 07/16/2018 Surgical Franko Patino K42.9 Umbilical hernia 2:00p [facility] Rice MD without obstruction or gangrene Office Visit 07/07/2018 Rheumatology Gui Farrar.9 Gout, 8:00a [facility]ning unspecified Z79.899 Other remote computer terminal operator (current) drug therapy Office 06/23/2018 [facility] Barakat G2Augustina Parkinson's disease Visit 8:45a Services Of [facility] Kessler M.D. 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, lumbar region Office 05/01/2018 [facility] Wang Padilla G47.33 Obstructive sleep Visit 11:00a Nallely Cruz apnea (adult) (pediatric) I48.2 Chronic atrial fibrillation E78.00 Pure hypercholesterolemia, unspecified I10 Essential (primary) hypertension I65.23 Occlusion and stenosis of bilateral carotid arteries Office Visit 04/22/2018 Pulmonology And Ivet G47.33 Obstructive sleep 9:00a Sleep Services Of JEANNIE Adam RN, apnea (adult) [facility] PAULETTE-CESIA (pediatric) Z68.30 Body mass index (BMI) 30.0-30.9, adult Office Visit 03/14/2018 3:00p [facility] Kenrick Kessler G2Augustina Parkinson's [facility] Browning disease R53.82 Chronic fatigue, unspecified Office Visit 01/02/2018 8:00a Rheumatology Marv Joy0.9 Gout, unspecified Services Of [facility] Hale M.D. 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 fibrillation G47.33 Obstructive sleep apnea (adult) (pediatric) I10 Essential (primary) hypertension R25.1 Tremor, unspecified Office Visit 08/20/2017 Pulmonology And Ivet G47.33 Obstructive sleep 8:15a [facility] JEANNIE Adam RN, apnea (adult) [facility] (pediatric) H93.19 Tinnitus, unspecified ear Z57.0 Occupational exposure to noise Office Visit 06/07/2017 Pulmonology And Ivet G47.33 Obstructive sleep 8:30a [facility] JE[facility]IE Adam RN, apnea (adult) [facility] (pediatric) H93.19 Tinnitus, unspecified ear Office Visit 06/04/2017 8:00a Rheumatology Marv M10.9 Gout, unspecified Services Of [facility] Hale M.D. Z79.899 Other remote computer terminal operator (current) drug therapy Office Visit 05/20/2017 1:30p [facility] Wang Padilla I48.2 Chronic atrial Mauser, M.D. fibrillation I10 Essential (primary) hypertension R25.1 Tremor, unspecified E78.00 Pure hypercholesterolemia, unspecified I49.3 Ventricular premature depolarization Office Visit 04/29/2017 2:00p [facility] Evonne Garza I48.2 Chronic atrial PA fibrillation G47.33 Obstructive sleep apnea (adult) (pediatric) I10 Essential (primary) hypertension R25.1 Tremor, unspecified E78.00 Pure hypercholesterolemia, unspecified Office Visit 04/08/2017 8:30a [facility] Evonne Garza I48.2 Chronic atrial PA fibrillation G47.33 Obstructive sleep apnea (adult) (pediatric) I10 Essential (primary) hypertension I49.3 Ventricular premature depolarization E78.00 Pure hypercholesterolemia, unspecified Office Visit 03/08/2017 Pulmonology And Ivet G47.33 Obstructive sleep 9:15a [facility] JEANNIE Adam RN, apnea (adult) [facility] (pediatric) H93.11 Tinnitus, right ear Office Visit 03/07/2017 8:20a [facility] Wang Padilla I48.2 Chronic atrial Mauser, M.D. fibrillation M10.9 Gout, unspecified G47.33 Obstructive sleep apnea (adult) (pediatric) I10 Essential (primary) hypertension E78.00 Pure hypercholesterolemia, unspecified R94.31 Abnormal electrocardiogram [ECG] [EKG] Office Visit 01/29/2017 9:20a Rheumatology Marv M10.9 Gout, unspecified Services Of [facility] Hale M.D. Z79.899 Other remote computer terminal operator (current) drug therapy Office Visit 01/25/2017 Pulmonology And Ivet G47.33 Obstructive sleep 10:00a [facility] JE[facility]IE Adam, RN, apnea (adult) Ki[facility] CAMERA REPAIR TECHNICIAN-BC (pediatric) Office Visit 01/01/2017 Pulmonology And Koki Gerardo, R06.83 Snoring 2:00p Sleep Services Of MD Craig R09.02 Hypoxemia R40.0 Somnolence Office Visit 11/23/2016 11:00a Rheumatology Marv M10.9 Gout, unspecified Services Of Kiaar Hale M.D. Z79.899 Other remote computer terminal operator (current) drug therapy M06.4 Inflammatory polyarthropathy Office Visit 10/24/2016 8:30a [facility] Evonne Garza, I10 Essential (primary) PA hypertension I48.2 Chronic atrial fibrillation I49.3 Ventricular premature depolarization Office Visit 10/02/2016 [facility] Nurse Visit I10 Essential 9:00a cc (primary) hypertension Office Visit 09/19/2016 Rheumatology Marv M25.431 Effusion, right 10:40a Services [facility] Hale M.D. wrist M25.532 Pain in left wrist M25.531 Pain in right wrist Office Visit 08/23/2016 9:00a [facility] Wang Padilla I10 Essential (primary) Nallely Cruz hypertension R94.31 Abnormal electrocardiogram [ECG] [EKG] I48.2 Chronic atrial fibrillation R01.1 Cardiac murmur, unspecified E78.00 Pure hypercholesterolemia, unspecified Office Visit 08/16/2016 Rheumatology Marv M06.4 Inflammatory 8:40a [facility] Hale M.D. polyarthropathy E79.0 Hyperuricemia w/o signs of inflam arthrit and tophaceous dis M25.532 Pain in left wrist Office Visit 07/23/2016 Rheumatology Marv M06.4 Inflammatory 9:00a Services Of [facility] Hale M.D. 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 at [facility]04/06/2019 8:00 am - Marv Hale M.D. at [facility]04/22/2019 8:15 am - Ivet Adam DNP, RN, CAMERA REPAIR TECHNICIAN- BC at [facility]09/12/2018 - Yuval Kessler M.D.G20 Parkinson's diseaseNew Therapy:Physical TherapyFollow up:Follow up in 3 months
--- OUTSIDE RECORDS SUMMARY | 2018-09-15 14:52 | XMS REPORT | Continuity of Care Document ---
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 morning Atorvastatin 04/29/20 Active Tablets 10mg 30tab 1 by E78.00 Wang Padilla Calcium 17 s maryan Cruz M.D. every other day Xarelto 04/08/20 Active Tablets 20mg 30tab 1 by I48.2 Wang Padilla 17 s maryan Cruz M.D. every day Spironolactone 04/08/20 Active Tablets 25mg 30tab 1 by I10 Wang Meeks s maryan Cruz M.D. every day Tylenol 8 Hour 04/07/20 Active Tablets 650mg 1 by Unknown 17 ER mouth three times a day as needed for pain Multi Vitamin 04/07/20 Active Tablets 1 by Unknown 17 mouth every day Allopurinol 01/30/20 Active Tablets 300mg 30tab 1 by Marv 17 s maryan Hale M.D. every day Co Q10 Maximum Active Capsules 200mg 1 by Unknown Strength 00 mouth every day Azilect 07/24/19 Hx Tablets 1mg 30tab 1 by G20 Yuval 19 - s maryan Kessler M.D. 07/28/19 every 19 day Ropinirole HCL 07/11/19 Hx Tablets 0.25mg 90tab Take 1 Nikia Barakat 19 - s tablet Ramiro Kessler M.D. 07/23/19 times a 19 day at mealtime Carbidopa-Levod 06/23/20 Hx Tablets 25-100mg 45tab 1/2 pill G20 Yuval opa 18 - s tyree Kessler M.D. 07/11/19 times a 19 day, 30 min prior to meals Nadolol 04/29/20 Hx Tablets 40mg 1/2 tab E78.00 Wang Padilla 17 - po daily Nallely Cruz 06/26/19 for 19 tremors Advil 01/02/20 Hx Capsules 200mg 1-2 po Koki Constantino Munoz as MD Humaira 04/07/20 needed 17 Allopurinol 09/30/19 Hx Tablets [...] Available Vital Signs Date Vital Result Comment 08/20/2018 11:30am Height 74 inches 6'2" Weight [...] Date Facility Test Result H/L Range Note Laboratory test 07/03/2018 [facility] Uric Acid 3.6 mg/dL Low 4.4-7.[address] [place] [address] [phone] CBC Auto Diff 07/03/2018 [facility] White Blood 8.1 10^3/uL N 3.5-10.[address] [place] [address] [phone] Red Blood Count 5.25 10^6/uL N 4.00-5.40 [...] % Nucleated Red Blood Cells % 0 Comp Metabolic Panel 07/03/2018 [facility] Sodium 138 mmol/L N 135-145 [address] [place] [address] [phone] Potassium 4.0 mmol/L N 3.5-5.0 Chloride 100 [...] Non- 93.9 >60 Egfr 113.7 >60 1 Laboratory test 05/20/2018 [facility] Copper, Serum 1.05 g/mL 0.75-1.45 2 finding [address] [place] [address] [phone] Ceruloplasmin 24.5 mg/dL 3 Laboratory 05/20/2018 [facility] TSH (Thyroid Stim 2.54 N 0.34 -5.[address] Horm) mcIU/[place] [address] [phone] Lipid Profile 05/20/2018 [facility] Triglycerides 107 mg/dL 4 (Trig/Chol/HDL [address] ) [place] [address] [phone] Cholesterol 134 mg/dL 5 HDL Cholesterol 39.6 mg/dL 6 LDL Cholesterol 73 mg/dL 7 Vitamin B12 And 05/20/2018 [facility] Vitamin B12 589 pg/mL N 180-[address] [place] [address] [phone] Folic Acid (Folate) > 20.00 ng/mL >3.99 Laboratory test 05/20/2018 [facility] TSH (Thyroid <pending> finding DRIVE Stim Horm) [place] [address] [phone] Free T4 (Free Thyroxine) 0.87 ng/dL N 0.61-1.12 CBC Auto Diff 05/20/2018 [facility] White Blood 6.7 10^3/uL N 3.5-10.8 [place] [address] [phone] Red Blood Count 5.12 10^6/uL N 4.00-5.40 [...] % Nucleated Red Blood Cells % 0.1 Comp Metabolic Panel 05/20/2018 [facility] Sodium 139 mmol/L N 135-[address] [place] [address] [phone] Potassium 4.1 mmol/L N 3.5-5.0 Chloride 102 [...] Egfr Non- 93.9 >60 Egfr 113.7 >60 9 Lipid Panel - 05/20/2018 [facility] Creatine 25 U/L N 10-[address] Kinase(CK) [place] [address] [phone] Laboratory test 12/30/2017 [facility] Uric Acid 3.6 Low 4.4- 7.[address] mg/[place] [address] [phone] CBC Auto Diff 12/30/2017 [facility] White Blood 8.2 N 3.5- 10.[address] Count 10^3/[place] [address] [phone] Red Blood Count 5.19 10^6/uL N 4.00-5.40 [...] Cells % 0 Comp Metabolic Panel 12/30/2017 [facility] Sodium 138 mmol/L N 135-[address] [place] [address] [phone] Potassium 4.5 mmol/L N 3.5-5.0 Chloride 99 [...] 100.7 >60 10 Lipid Panel - 06/03/2017 [facility] Creatine 35 U/L N 10-[address] Kinase(CK) [place] [address] [phone] Comp Metabolic 06/03/2017 [facility] Sodium 139 N 133-[address] mmol/[place] [address] [phone] Potassium 4.2 mmol/L N 3.5-5.0 Chloride 103 [...] Egfr 97.2 >60 11 Lipid Profile 06/03/2017 [facility] Triglycerides 99 mg/dL 12 (Trig/Chol/HDL) [address] [place] [address] [phone] Cholesterol 152 mg/dL 13 HDL Cholesterol 29.0 mg/dL 14 LDL Cholesterol 103 mg/dL 15 Laboratory test 05/29/2017 [facility] Uric Acid 4.0 mg/dL Low 4.4-7.6 finding [address] [place] [address] [phone] Erythrocyte Sed Rate 22 mm/Hr N 0-40 C Reactive Protein 9.21 mg/L High < 5.00 16 Comp Metabolic Panel 05/29/2017 [facility] Sodium 135 mmol/L N 133-145 [address] [place] [address] [phone] Potassium 4.2 mmol/L N 3.5-5.0 Chloride 100 [...] 95.0 >60 17 CBC Auto Diff 05/29/2017 [facility] White Blood 5.3 10^3/uL N 3.5-10.[address] [place] [address] [phone] Red Blood Count 5.38 10^6/uL N 4.0-5.4 [...] Cells % 0.4 Lipid Panel - 04/22/2017 [facility] Creatine 29 U/L N 10-[address] Kinase(CK) [place] [address] [phone] Comp Metabolic 04/22/2017 [facility] Sodium 136 N 133-[address] mmol/[place] [address] [phone] Potassium 3.8 mmol/L N 3.5-5.0 Chloride 101 [...] 97.2 N >60 18 Lipid Profile 04/22/2017 [facility] Triglycerides 156 mg/dL N 19 (Trig/Chol/HDL) [address] [place] [address] [phone] Cholesterol 197 mg/dL N 20 HDL Cholesterol 36.7 mg/dL N 21 LDL Cholesterol 129 mg/dL N 22 CBC Auto Diff 01/25/2017 [facility] White Blood 7.3 10^3/uL N 3.5-10.[address] [place] [address] [phone] Red Blood Count 5.68 10^6/uL High 4.0-5.4 [...] Cells % 0 N Laboratory test 01/25/2017 [facility] Uric Acid 6.1 mg/dL N 4.4-7.6 finding [address] [place] [address] [phone] Erythrocyte Sed Rate 14 mm/Hr N 0-40 C Reactive Protein 3.77 mg/L N < 5.00 23 Comp Metabolic Panel 01/25/2017 [facility] Sodium 134 mmol/L N 133-145 [address] [place] [address] [phone] Potassium 3.8 mmol/L N 3.5-5.0 Chloride 96 [...] 70.6 N >60 Egfr 90.8 N >60 24 Laboratory test 11/20/2016 [facility] Uric Acid 7.2 mg/dL N 4.4-7.[address] [place] [address] [phone] Laboratory test 09/19/2016 [facility] Body Fluid Monsodium N 25, 26 finding [address] [facility] Crystals [place] [address] [phone] Body Fluid C&S SEE RESULT BELOW 27 Body Fluid Cell 09/19/2016 [facility] Body Fluid Synovial Fluid N Count [address] [place] [address] [phone] Body Fluid WBC TNP /mcL N 28 Body Fluid RBC TNP /mcL N 29 Body Fluid Appearance Cloudy N Body Fluid Color Red N Body Fluid Volume 0.20 mL N Body Fluid Neutrophils 94 % N Body Fluid Lymph 1 % N Body Fluid Boyle 5 % N Body Fluid Other Cells 4 N Body Fluid Total Cells Counted 100 N Body Fluid Comment (SEE NOTE) N 30 Fluid Reviewed By MD (SEE NOTE) N 31 Hla B27 07/24/2016 [facility] Hla B27 Negative N [address] [place] [address] [phone] Hla B27 Interp See Comment N 33 Laboratory test 07/24/2016 [facility] Cyclic Citrullinated < 15.6 U N 34 finding [address] [facility] [place] [address] [phone] Erythrocyte Sed Rate 39 mm/Hr N 0-40 C Reactive Protein 10.52 mg/L High < 5.00 35 Anca Panel For 07/24/2016 [facility] Myeloperoxidase AB < 0.2 U N [address] [place] [address] [phone] Proteinase 3 AB < 0.2 U N 37 Laboratory test 07/24/2016 [facility] Anti Nuclear 0.3 U N 38 finding [address] [facility] [place] [address] [phone] Vitamin B12 415 pg/mL N 180-914 39 Creatine Kinase(CK) 32 U/L N 10-223 Comp Metabolic Panel 07/24/2016 [facility] Sodium 136 mmol/L N 133-[address] [place] [address] [phone] Potassium 3.7 mmol/L N 3.5-5.0 Chloride 96 [...] 62.4 N >60 Egfr 80.3 N >60 40 Laboratory test 07/24/2016 [facility] Rheumatoid Factor <15 IU/ mL N <15 [address] [place] [address] [phone] Uric Acid 9.1 mg/dL High 4.4-7.6 CBC Auto Diff 07/24/2016 [facility] White Blood 7.6 10^3/uL N 3.5-10.[address] [place] [address] [phone] Red Blood Count 5.47 10^6/uL High 4.0-5.4 [...] Nucleated Red Blood Cells % 0.1 N 1 Because ethnic data is not always [...] 5 Kidney failure <15 (or dialysis) 2 ADDITIONAL INFORMATION This test was developed and its performance characteristics determined by [facility] in a manner consistent with CLIA requirements. This test has not been cleared or approved by the U.S. Food and Drug Administration. Test Performed by: [facility] [place] [facility] [address] [place] [address] 3 REFERENCE VALUE 19.0 - 31.0 Test Performed by: [facility] [address] [place] [address] 4 Desirable: <150 Borderline High: 150-199 High: 200-499 Very High: >500 5 Desirable: <200 Borderline High: 200-239 High: >239 6 Low: <40 Desirable: 40-60 High: >60 7 Desirable: <100 Near Optimal: 100-129 Borderline High: 130-159 High: 160-189 Very High: >189 8 Normal Range 180 to 914 Indeterminate Range 145 to 180 Deficient Range <145 9 Because ethnic data is not always readily [...] 15-29 5 Kidney failure <15 (or dialysis) 10 Because ethnic data is not always [...] 130-159 High: 160-189 Very High: >189 23 Acute inflammation: >10.00 24 Because ethnic data is not always readily [...] 15-29 5 Kidney failure <15 (or dialysis) 25 [id number] What is the body fluid source?: Synovial (Joint) Fluid 27 SEE RESULT BELOW Name: CONSUELO DAVIS : [address]: Marv Hale MD Acct: [id number] Unit: [id number] AGE: 70 Location: [facility] Re09/19/16 SEX: M Status: REG REF SPEC: [id number] PIETER: 09/19/[address] [facility] [address]: Marv Hale MD REQ: [id number] RECD: 09/19/16 STATUS: COMP _ SOURCE: JOINT FLUI SPDESC:WRIST RHT ORDERED: BF Cult/GS, MRSA/SA SSTI Procedure Result Reported Site Body Fluid Gram Stain Final 09/20/16- 748 ML 4+ Neutrophils No Organisms Seen Preparation By Cytospin Smear Body Fluid Culture Final 09/23/16- 851 ML No Growth Day 4 MRSA/S. aureus SSTI PCR Final 09/19/16- 170 ML Organism 1 MRSA NEGATIVE Organism 2 S.AUREUS NEGATIVE * ML - MAIN LAB ([facility]) . END OF REPORT * ML=Testing performed at Main Lab DEPARTMENT OF PATHOLOGY, [address] [place] [address] Michael Lees M.D. Director [facility] # [id number] 28 Sample quantity insufficient to perform test requested. 29 Sample quantity insufficient to perform test requested. 30 Differential performed on concentrated smear. 31 Acute inflammation present. Recommend correlation with microbiology culture studies. Red cell contamination noted. Reviewed by Dr. Lees 32 REFERENCE VALUE Not Applicable 33 RESULT: HLA-B27 antigen was not detected. ADDITIONAL INFORMATION Method: Flow Cytometry Performing Laboratory CLIA# [id number] Test Performed by: [place] [address] Campus Recruiter: Harlan Lopez II, M.D., Ph.D. 34 REFERENCE VALUE <20.0 (Negative) Test Performed by: [place] [id number] Campus Recruiter: Harlan Lopez II, M.D., Ph.D. 35 Acute inflammation: >10.00 36 REFERENCE VALUE <0.4 (Negative) 37 REFERENCE VALUE <0.4 (Negative) Test Performed by: [address] [address] Campus Recruiter: Harlan Lopez II, M.D., Ph.D. 38 REFERENCE VALUE <=1.0 (Negative) Test Performed by: [place] [address] Campus Recruiter: Harlan Lopez II, M.D., Ph.D. 39 Normal Range 180 to 914 Indeterminate Range 145 to 180 Deficient Range <145 40 Because ethnic data is not always readily [...] 15-29 5 Kidney failure <15 (or dialysis) 41 Test Performed by: [address] [address] Campus Recruiter: Harlan Lopez II, M.D., Ph.D. Procedures Date Code Description Status 08/20/2018 63330 EKG Tracing & Interpretation Completed 05/01/2018 53959 EKG Tracing & Interpretation Completed 08/20/2017 36560 EKG Tracing & Interpretation Completed 03/23/2017 32935 Holter Monitor Review (24 hr)dr valencia & marvinp only Completed 03/21/2017 55112 ECG Monitor/Recording W/Visual Superimposition Scanning Completed 03/07/2017 31788 EKG Tracing & Interpretation Completed 03/04/2017 54398 Holter Monitor Review (24 hr)dr review & interp only Completed 02/28/2017 52816 ECG Monitor/Recording W/Visual Superimposition Scanning Completed 01/17/2017 87365 Sleep Study Unattended,HRT Rate,Oxygen Sat,Resp Completed Effort/Airflow 01/10/2017 34805 Sleep Study Unattended,HRT Rate,Oxygen Sat,Resp Completed Effort/Airflow 10/19/2016 10698 Treadmill Interp/Report Only Completed 10/19/2016 36898 Stress Test Supervsn W/Out I/R Completed 10/17/2016 57004 Holter Monitor Review (24 hr)dr review & interp only Completed 10/15/2016 85922 ECG Monitor/Recording W/Visual Superimposition Scanning Completed 09/22/2016 61621 Holter Monitor Review (24 hr)dr review & interp only Completed 09/20/2016 48776 ECG Monitor/Recording W/Visual Superimposition Scanning Completed 09/19/2016 01141 Inject/Drain Joint/Bursa Intermediate W/O US Completed 09/13/2016 36083 ECHO Transthoracic, Real-Time 2D With Doppler And Color Completed Flow 08/23/2016 75482 EKG Tracing & Interpretation Completed Encounters Type Date Location Provider Dx Diagnosis Office Visit 07/24/2018 [facility] Yuval Kessler G20 Parkinson' s 2:00p Services Of [facility] Browning disease Office Visit 07/16/2018 [facility] Franko Rice, K42.9 Umbilical hernia 2:00p Of [facility] BRASHER without obstruction or gangrene Office Visit 07/07/2018 [facility] Marv Hale, M10.9 Gout, unspecified 8:00a Services Of [facility] Z79.899 Other longterm (current) drug therapy Office 06/23/2018 [facility] Yuval Montejo Parkinson's disease Visit 8:45a Services Of [facility] Kessler M.D. 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, lumbar region Office 05/01/2018 [facility] Wang Padilla G47.33 Obstructive sleep Visit 11:00a Nallely Cruz apnea (adult) (pediatric) I48.2 Chronic atrial fibrillation E78.00 Pure hypercholesterolemia, unspecified I10 Essential (primary) hypertension I65.23 Occlusion and stenosis of bilateral carotid arteries Office Visit 04/22/2018 [facility] And Ivet G47.33 Obstructive sleep 9:00a Sleep Services Of JEANNIE Adam RN, apnea (adult) [facility]- (pediatric) Z68.30 Body mass index (BMI) 30.0-30.9, adult Office Visit 03/14/2018 3:00p [facility] Yuval Kessler, G20 Parkinson's Services Of [facility] disease R53.82 Chronic fatigue, unspecified Office Visit 01/02/2018 8:00a Rheumatology Marv Joy0.9 Gout, unspecified Services Of Kiraa Hale M.D. 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 fibrillation G47.33 Obstructive sleep apnea (adult) (pediatric) I10 Essential (primary) hypertension R25.1 Tremor, unspecified Office Visit 08/20/2017 [facility] And Ivet G47.33 Obstructive sleep 8:15a Sleep Services Of JEANNIE Adam RN, apnea (adult) [facility]-BC (pediatric) H93.19 Tinnitus, unspecified ear Z57.0 Occupational exposure to noise Office Visit 06/07/2017 [facility] And Ivet G47.33 Obstructive sleep 8:30a Sleep Services Of JEANNIE Adam RN, apnea (adult) [facility]-BC (pediatric) H93.19 Tinnitus, unspecified ear Office Visit 06/04/2017 8:00a Rheumatology Marv Joy0.9 Gout, unspecified Services Of Kiara Hale M.D. Z79.899 Other oil heaterman (current) drug therapy Office Visit 05/20/2017 1:30p [facility] Wang Padilla I48.2 Chronic atrial Mauser, M.D. fibrillation I10 Essential (primary) hypertension R25.1 Tremor, unspecified E78.00 Pure hypercholesterolemia, unspecified I49.3 Ventricular premature depolarization Office Visit 04/29/2017 2:00p [facility] Evonne Garza, I48.2 Chronic atrial PA fibrillation G47.33 Obstructive sleep apnea (adult) (pediatric) I10 Essential (primary) hypertension R25.1 Tremor, unspecified E78.00 Pure hypercholesterolemia, unspecified Office Visit 04/08/2017 8:30a [facility] Evonne Garza, I48.2 Chronic atrial PA fibrillation G47.33 Obstructive sleep apnea (adult) (pediatric) I10 Essential (primary) hypertension I49.3 Ventricular premature depolarization E78.00 Pure hypercholesterolemia, unspecified Office Visit 03/08/2017 Pulmonology And Ivet G47.33 Obstructive sleep 9:15a Sleep [facility] H[facility].11 Tinnitus, right ear Office Visit 03/07/2017 8:20a [facility] Wang Padilla I48.2 Chronic atrial Hailey Cruz. fibrillation M10.9 Gout, unspecified G47.33 Obstructive sleep apnea (adult) (pediatric) I10 Essential (primary) hypertension E78.00 Pure hypercholesterolemia, unspecified R94.31 Abnormal electrocardiogram [ECG] [EKG] Office Visit 01/29/2017 9:20a Rheumatology Marv M10.9 Gout, unspecified Services Of Kiara Hale M.D. Z79.899 Other longterm (current) drug therapy Office Visit 01/25/2017 Pulmonology And Ivet G47.33 Obstructive sleep 10:00a Sleep Services Of JEANNIE Adam RN, apnea (adult) [facility]- (pediatric) Office Visit 01/01/2017 Pulmonology And Koki Gerardo, R06.83 Snoring 2:00p Sleep Services Of MD Craig R09.02 Hypoxemia R40.0 Somnolence Office Visit 11/23/2016 11:00a Rheumatology Marv M10.9 Gout, unspecified Services Of Kiara Hale M.D. Z79.899 Other longterm (current) drug therapy M06.4 Inflammatory polyarthropathy Office Visit 10/24/2016 8:30a [facility] Evonne Garza, I10 Essential (primary) PA hypertension I48.2 Chronic atrial fibrillation I49.3 Ventricular premature depolarization Office Visit 10/02/2016 [facility] Nurse Visit I10 Essential 9:00a cc (primary) hypertension Office Visit 09/19/2016 Rheumatology Marv M25.431 Effusion, right 10:40a Services Of Kiara Hale M.D. wrist M25.532 Pain in left wrist M25.531 Pain in right wrist Office Visit 08/23/2016 9:00a [facility] Wang Padilla I1Augustina Essential (primary) Nallely Cruz hypertension R94.31 Abnormal [...] Other disturbances of skin sensation Z79.899 Other longterm (current) drug therapy Plan of Treatment Future Appointment(s):09/12/2018 1:15 pm - Yuval Kessler M.D. at [facility]04/06/2019 8:00 am - Marv Hale M.D. at [facility]04/22/2019 8:15 am - Ivet Adam DNP, RN, SINGING WAITER OR WAITRESS- at [facility]08/20/2018 - Wang Cruz M.D.G20 Parkinson's dbxgvwaL24.2 Chronic atrial fibrillationFollow up:ov 7 mE78.00 Pure hypercholesterolemia, qonffputmauR47 Essential (primary) xhyepbddjahoD65.33 Obstructive sleep apnea (adult) (pediatric)K42.9 Umbilical hernia without obstruction or fmpocxdpY09.20 Pulmonary hypertension, unspecifiedNew Orders:Echocardiogram, Ordered: 08/20/18
[2018-09-15 15:23] LABS: Urine Appearance Clear; Urine Bacteria Absent (Absent); Urine Bilirubin Negative (Negative); Urine Blood 1+ (Negative); Urine Color Yellow; Urine Glucose Negative (Negative); Urine Ketones Negative (Negative); Urine Nitrite Negative (Negative); Urine Protein Negative (Negative); Urine Red Blood Cell Absent (Absent); Urine Specific Gravity 1.003 (1.010-1.030); Urine Urobilinogen Negative (Negative); Urine White Blood Cell Absent (Absent)
[2018-09-15 16:03] VITALS: BP 154/96
== END 2018-09-15 16:02 | disposition home or self-care (01) ==
LOC: ED 14:26
DX: R33.9 Retention of urine, unspecified (principal); R30.0 Dysuria; Z88.0 Allergy status to penicillin; Z88.2 Allergy status to sulfonamides; R10.9 Unspecified abdominal pain; I10 Essential (primary) hypertension
CPT/HCPCS: 81003; 81015; 99283

== ENCOUNTER 2022-04-19 09:00 | Inpatient (IN) ==
[~2022-04-19 09:00] MED LIST: Buffered Lidocaine 1% SYRIN 1 ml INTRADERM ONE; Lactated Ringers 1000 ml BAG 1,000 ML IV SCH
[2022-04-19] MEDS ORDERED: Dexamethasone IV 4 MG/ML VIAL 1 ml VIAL ONE (10:00)
[2022-04-19] MEDS ORDERED: Lidocaine 2% PF 5 ML VIAL ONE (10:00)
[2022-04-19] MEDS ORDERED: Ondansetron 4 mg VIAL 2 MG/ML 2 ml VIAL ONE (10:00)
[2022-04-19] MEDS ORDERED: Midazolam 5 mg/5 ml VIAL 1 mg/ml 5 ml VIAL (5 mg) ONE (10:00)
[2022-04-19] MEDS ORDERED: fentaNYL 100 mcg/2 ml 50 MCG/ML VIAL ONE ×2 (10:00→16:38)
[2022-04-19] MEDS ORDERED: Acetaminophen IV 1 GM/100ML 1,000 MG/100 ML BAG IV ONE (10:00)
[2022-04-19] MEDS ORDERED: ceFAZolin 2 GM PREMIX 2 GM/50 ML BAG ONE (10:17)
[2022-04-19] MEDS ORDERED: ceFAZolin 1 GM in Dextrose 1 GM/50 ML BAG ONE (10:20)
[2022-04-19] MEDS ORDERED: Midazolam 2 mg/2 ml VIAL 1 mg/ml 2 ml VIAL (2 mg) ONE (11:45)
[2022-04-19] MEDS ORDERED: ROPIVACAINE 5 MG/ML 30 ML BTL (0.5%) ONE (11:48)
[2022-04-19] MEDS ORDERED: Naloxone 0.4 mg VIAL 0.4 mg/ml 1 ml VIAL IV PRN (13:19)
[2022-04-19] MEDS ORDERED: Acetaminophen IV 1 GM/100ML 1,000 MG/100 ML BAG IV PRN (13:19)
[2022-04-19] MEDS ORDERED: HYDROmorphone 1 MG/1 ML SYRINGE IV PRN (13:19)
[2022-04-19] MEDS ORDERED: Ondansetron 4 mg VIAL 2 MG/ML 2 ml VIAL IV PRN ×2 (13:19→16:13)
[2022-04-19] MEDS ORDERED: Ropivacaine 5 MG/ML 20 ML VIAL 0.5% (100 MG) ONE (14:34)
[2022-04-19] MEDS ORDERED: Propofol 10 MG/ML 20 ML BTL ONE (15:41)
[2022-04-19] MEDS ORDERED: Lactulose 30 ml UDC PO PRN (16:13)
[2022-04-19] MEDS ORDERED: Ondansetron ODT 4 mg TAB 4 MG TAB PO PRN (16:13)
[2022-04-19] MEDS ORDERED: Magnesium Hydroxide LIQ 30 ML UDC PO PRN (16:13)
[2022-04-19] MEDS ORDERED: Morphine 2 MG/ML SYRINGE IV PRN (16:13)
[2022-04-19] MEDS: fentaNYL 100 mcg/2 ml 50 MCG/ML VIAL IV PRN ×2 (16:39→16:51)
[2022-04-19] MEDS ORDERED: ceFAZolin 1 GM ADVAN 1 GM in NS 0.9% 50 ML 50 ML IVPB SCH (17:00)
[2022-04-19] MEDS: Lactated Ringers 1000 ml BAG 1,000 ML IV SCH ×2 (18:32→18:57)
[2022-04-19] MEDS: ceFAZolin 1 GM ADVAN 1 GM in NS 0.9% 50 ML 50 ML IVPB SCH (21:36)
[2022-04-19] MEDS: Magnesium Hydroxide LIQ 30 ML UDC PO SCH (23:07)
[2022-04-20] MEDS ORDERED: Carbidopa/Levodop CR 50/200 TAB.CR PO SCH
[2022-04-20] MEDS: ceFAZolin 1 GM ADVAN 1 GM in NS 0.9% 50 ML 50 ML IVPB SCH ×2 (05:46→13:09)
[2022-04-20 06:43] LABS: Hematocrit 38 % (42-52); Hemoglobin 13.3 g/dL (14.0-18.0); Mean Platelet Volume 7.7 fL (7.4-10.4); Platelet Count 186 10^3/uL (150-450)
[2022-04-20 07:04] LABS: Calcium 9.1 mg/dL (8.6-10.3); Potassium 4.9 mmol/L (3.5-5.0); eGFR CKD-EPI 73.2 (>60)
[2022-04-20] MEDS: Carbidopa/Levodop 25/100 MG TAB PO SCH ×2 (08:55→13:08)
[2022-04-20] MEDS: Magnesium Hydroxide LIQ 30 ML UDC PO SCH (08:57)
[2022-04-20] MEDS ORDERED: Vitamin THERAPEUTIC TAB PO SCH (09:00)
[2022-04-20 11:41] VITALS: BP 111/58
[2022-04-20] MEDS ORDERED: CMCS: Alfuzosin ER 10 mg TAB.ER (NF) 10 MG TAB.ER PO SCH (21:00)
== END 2022-04-20 14:15 | disposition home health service (06) | DRG 470 ==
LOC: INTOOBSV 10:04 → AA 10:04 → OBSVTOIN 10:04 → SSU 16:13
PROVIDERS: ADMIT Orthopaedic Surgery Adult Reconstructive Orthopaedic Surgery; ATTEND Orthopaedic Surgery Adult Reconstructive Orthopaedic Surgery

== ENCOUNTER 2024-03-11 16:04 | Inpatient (IN) ==
[2024-03-11 16:41] LABS: ABS Basophils 0.1 10^3/uL (0.0-0.1); ABS Eosinophils 0.3 10^3/uL (0.0-0.5); ABS Lymphocytes 0.9 10^3/uL (1.0-4.8); ABS Monocytes 0.8 10^3/uL (0.0-1.1); ABS Neutrophils 8.1 10^3/uL (1.5-7.6); ABS Nucleated RBC 0.01 10^3/ul; Eosinophil % 3.4 %; Hematocrit 25.9 % (38-53); Hemoglobin 8.7 g/dL (13.2-16.3); Lymphocyte % 8.6 %; Mean Corpuscular Hemoglobin 30.5 pg (27-33); Mean Corpuscular Hgb Conc 33.6 g/dL (31-36); Mean Corpuscular Volume 90.7 fL (80-97); Mean Platelet Volume 6.7 fL (7.5-11.2); Nucleated Red Blood Cells % 0.1 %/100WBC (0.0-0.8); Platelet Count 339 10^3/uL (150-450); Red Blood Count 2.86 10^6/uL (4.06-5.63); Red Cell Distribution Width 18.1 % (12-17); White Blood Count 10.2 10^3/uL (3.6-10.2)
[2024-03-11 16:55] LABS: INR 1.42 (0.85-1.14)
[2024-03-11 17:03] LABS: High Sens Troponin Baseline 46 pg/mL (<20)
[2024-03-11 17:08] LABS: Anion Gap 5 mmol/L (2-16); Blood Urea Nitrogen 24 mg/dL (6-24); CO2 Carbon Dioxide 29 mmol/L (22-32); Chloride 100 mmol/L (101-111); Creatinine, Serum 1.12 mg/dL (0.67-1.17); Glucose 117 mg/dL (70-100); Potassium 4.4 mmol/L (3.5-5.0); Sodium 134 mmol/L (135-145); eGFR CKD-EPI 67.7 (>60)
[2024-03-11 17:25] LABS: ALT < 3 U/L (7-52); AST 17 U/L (13-39); Albumin 3.4 g/dL (3.2-5.2); Albumin/Globulin Ratio 0.9 (1-3); Alkaline Phosphatase 91 U/L (35-149); Globulin 3.7 g/dL (2-4); Magnesium 2.2 mg/dL (1.9-2.7); Total Bilirubin 1.1 mg/dL (0.2-1.0); Total Protein 7.1 g/dL (6.4-8.9)
[2024-03-11] MEDS: Iohexol 350 (CONTRAST) 500 ML MDV IV ONE (18:07)
[2024-03-11 18:13] LABS: High Sensitivity Troponin 1 Hr 39 pg/mL (<20)
[2024-03-11] MEDS ORDERED: Carbidopa/Levodopa ER 25/100 TABLET.ER PO ONE (20:51)
[2024-03-11] MEDS: Carbidopa/Levodop CR 50/200 TAB.CR PO ONE (21:31)
[2024-03-11] MEDS ORDERED: Atropine 0.1 MG/ML 10 ml SYR (1 mg) ONE (21:34)
[2024-03-12 06:30] LABS: ABS Basophils 0.1 10^3/uL (0.0-0.1); ABS Eosinophils 0.5 10^3/uL (0.0-0.5); ABS Monocytes 0.7 10^3/uL (0.0-1.1); ABS Neutrophils 6.8 10^3/uL (1.5-7.6); Eosinophil % 5.1 %; Hematocrit 26.3 % (38-53); Hemoglobin 8.8 g/dL (13.2-16.3); Mean Corpuscular Hgb Conc 33.3 g/dL (31-36); Mean Corpuscular Volume 90.1 fL (80-97); Mean Platelet Volume 6.6 fL (7.5-11.2); Platelet Count 373 10^3/uL (150-450); Red Blood Count 2.92 10^6/uL (4.06-5.63); Red Cell Distribution Width 18.8 % (12-17); White Blood Count 9.1 10^3/uL (3.6-10.2)
[2024-03-12 06:46] LABS: Anion Gap 10 mmol/L (2-16); Blood Urea Nitrogen 22 mg/dL (6-24); CO2 Carbon Dioxide 26 mmol/L (22-32); Calcium 8.9 mg/dL (8.6-10.3); Chloride 100 mmol/L (101-111); Creatinine, Serum 1.08 mg/dL (0.67-1.17); Glucose 90 mg/dL (70-100); Magnesium 2.2 mg/dL (1.9-2.7); Potassium 4.4 mmol/L (3.5-5.0); Sodium 136 mmol/L (135-145); eGFR CKD-EPI 70.7 (>60)
[2024-03-12] MEDS: Carbidopa/Levodop 25/100 MG TAB PO SCH (07:16)
[2024-03-12] MEDS: Cefepime 2 GM in Dextrose 2 GM/50 ML BAG IV SCH (07:16)
[2024-03-12 08:13] LABS: % Iron Saturation 18 % (15-55); .Transferrin 182 mg/dL (203-362); Iron 45 ug/dL (50-212); Total Iron Binding Capacity 255 mcg/dL (250-450); Unsaturated Iron Binding 210 ug/dL
[2024-03-12 08:38] LABS: Folate > 20.00 ng/mL (5.90-24.80)
[2024-03-12 08:39] LABS: Vitamin B12 901 pg/mL (180-914)
[2024-03-12] MEDS: Sulfur Hexaflouride MICROSPHR 25 MG VIAL IV PRN (09:00)
[2024-03-12] MEDS: Azithromycin 500 mg/250 ml NS 500 MG/250 ML BAG IVPB SCH (09:37)
[2024-03-12] MEDS: Enoxaparin 40 MG/0.4 ML SYR SUBCUT SCH (09:37)
[2024-03-12] MEDS: Potassium Chlor 10 meq TAB PO SCH (09:37)
[2024-03-12] MEDS: Carbidopa/Levodop CR 50/200 TAB.CR PO SCH (09:40)
[2024-03-12 17:08] LABS: C Reactive Protein 51.16 mg/L (<8.01)
[2024-03-12 18:51] LABS: Erythrocyte Sed Rate 51 mm/Hr (0-19)
[2024-03-13 04:54] LABS: ABS Basophils 0.1 10^3/uL (0.0-0.1); ABS Eosinophils 0.7 10^3/uL (0.0-0.5); ABS Monocytes 0.7 10^3/uL (0.0-1.1); ABS Neutrophils 5.3 10^3/uL (1.5-7.6); ABS Nucleated RBC 0.01 10^3/ul; Eosinophil % 8.5 %; Hematocrit 27.1 % (38-53); Lymphocyte % 12.8 %; Mean Corpuscular Hemoglobin 30.5 pg (27-33); Mean Corpuscular Hgb Conc 33.4 g/dL (31-36); Mean Corpuscular Volume 91.4 fL (80-97); Mean Platelet Volume 6.6 fL (7.5-11.2); Nucleated Red Blood Cells % 0.1 %/100WBC (0.0-0.8); Platelet Count 351 10^3/uL (150-450); Red Blood Count 2.96 10^6/uL (4.06-5.63); Red Cell Distribution Width 18.8 % (12-17); White Blood Count 7.8 10^3/uL (3.6-10.2)
[2024-03-13 05:23] LABS: Calcium 8.7 mg/dL (8.6-10.3); Creatinine, Serum 1.01 mg/dL (0.67-1.17); Magnesium 2.1 mg/dL (1.9-2.7); Potassium 4.5 mmol/L (3.5-5.0); eGFR CKD-EPI 76.6 (>60)
[2024-03-13] MEDS ORDERED: Cefepime 2 GM in Dextrose 2 GM/50 ML BAG IV SCH (07:20)
[2024-03-13] MEDS: NS 0.9% 1000 ml BAG 1,000 ML IV SCH (08:42)
[2024-03-13] MEDS ORDERED: Azithromycin 500 mg/250 ml NS 500 MG/250 ML BAG IVPB SCH (09:30)
[2024-03-13] MEDS ORDERED: Clindamycin 900 MG/50 **NS BAG 900 MG/50 ML BAG ONE (11:48)
[2024-03-13] MEDS: Clindamycin 900 MG/D5W BAG 900 MG/50 ML BAG IVPB ONE (12:51)
[2024-03-13] MEDS ORDERED: Midazolam 5 mg/5 ml VIAL 1 mg/ml 5 ml VIAL (5 mg) ONE (12:52)
[2024-03-13] MEDS ORDERED: Lidocaine 1% VIAL 10 MG/ML 30 ML VIAL ONE (12:52)
[2024-03-13] MEDS ORDERED: fentaNYL 100 mcg/2 ml 50 MCG/ML VIAL ONE (12:52)
[2024-03-13] MEDS ORDERED: Iohexol 300 (CONTRAST) 10 ML SDV ONE ×2 (12:59→13:33)
[2024-03-13] MEDS: Midazolam 10 mg/10 ml VIAL 1 mg/ml 10 ml VIAL (10 mg) IV SLOW PU ONE (13:06)
[2024-03-13] MEDS: fentaNYL 100 mcg/2 ml 50 MCG/ML VIAL IV SLOW PU ONE (13:21)
[2024-03-13] MEDS: Clindamycin 300 MG/D5W BAG 300 MG/50 ML BAG IV SCH (21:25)
[2024-03-14 15:45] LABS: ABS Eosinophils 0.5 10^3/uL (0.0-0.5); ABS Lymphocytes 0.9 10^3/uL (1.0-4.8); ABS Monocytes 0.7 10^3/uL (0.0-1.1); ABS Neutrophils 4.3 10^3/uL (1.5-7.6); Eosinophil % 8.1 %; Hematocrit 29.4 % (38-53); Hemoglobin 9.6 g/dL (13.2-16.3); Lymphocyte % 14.6 %; Mean Corpuscular Hgb Conc 32.5 g/dL (31-36); Mean Corpuscular Volume 92.3 fL (80-97); Mean Platelet Volume 6.5 fL (7.5-11.2); Platelet Count 345 10^3/uL (150-450); Red Blood Count 3.18 10^6/uL (4.06-5.63); Red Cell Distribution Width 18.7 % (12-17); White Blood Count 6.5 10^3/uL (3.6-10.2)
[2024-03-14] MEDS: Enoxaparin 40 MG/0.4 ML SYR SUBCUT SCH (16:08)
[2024-03-14] MEDS: Furosemide 20 mg/2 ml IV VIAL IV SLOW PU ONE (16:08)
[2024-03-14 16:23] LABS: Calcium 8.8 mg/dL (8.6-10.3); Creatinine, Serum 0.96 mg/dL (0.67-1.17); Magnesium 1.9 mg/dL (1.9-2.7); Phosphorus 3.1 mg/dL (2.5-5.0); Potassium 4.6 mmol/L (3.5-5.0); eGFR CKD-EPI 81.4 (>60)
[2024-03-14] MEDS: CMC:Alfuzosin ER 10 mg TAB.ER (NF) 10 MG TAB.ER PO SCH (20:36)
[2024-03-15 10:27] LABS: Calcium 8.7 mg/dL (8.6-10.3); Creatinine, Serum 0.9 mg/dL (0.67-1.17); Magnesium 1.9 mg/dL (1.9-2.7); Potassium 4.3 mmol/L (3.5-5.0)
[2024-03-15] MEDS: Furosemide 20 mg/2 ml IV VIAL IV ONE (11:58)
[2024-03-16 07:36] LABS: ABS Eosinophils 0.5 10^3/uL (0.0-0.5); ABS Lymphocytes 0.7 10^3/uL (1.0-4.8); ABS Monocytes 0.5 10^3/uL (0.0-1.1); ABS Neutrophils 3.2 10^3/uL (1.5-7.6); Eosinophil % 9.7 %; Hematocrit 27.3 % (38-53); Hemoglobin 8.9 g/dL (13.2-16.3); Lymphocyte % 15.2 %; Mean Corpuscular Hgb Conc 32.7 g/dL (31-36); Mean Corpuscular Volume 91.7 fL (80-97); Mean Platelet Volume 6.5 fL (7.5-11.2); Nucleated Red Blood Cells % 0.1 %/100WBC (0.0-0.8); Platelet Count 282 10^3/uL (150-450); Red Blood Count 2.97 10^6/uL (4.06-5.63); Red Cell Distribution Width 18.4 % (12-17); White Blood Count 4.9 10^3/uL (3.6-10.2)
[2024-03-16 09:03] LABS: Calcium 8.2 mg/dL (8.6-10.3); Creatinine, Serum 0.85 mg/dL (0.67-1.17); Magnesium 1.8 mg/dL (1.9-2.7); Potassium 4.4 mmol/L (3.5-5.0); eGFR CKD-EPI 89.5 (>60)
[2024-03-16 13:18] LABS: Anaplasma phagocytophilum Negative (Negative); B. miyamotoi PCR, B Negative (Negative); Babesia divergens/MO-1 Negative (Negative); Babesia ducani Negative (Negative); Ehrlichia chaffeensis Negative (Negative); Ehrlichia ewingii/canis Negative (Negative); Ehrlichia muris eauclairensis Negative (Negative)
[2024-03-16 13:38] LABS: IgG Immunoblot Negative (Negative); IgM Immunoblot Negative (Negative)
[2024-03-16] MEDS: Magnesium Sulfate 2 gm BAG 2 GM/50 ML BAG IVPB ONE (14:21)
[2024-03-17 05:55] LABS: Hematocrit 27.9 % (38-53); Hemoglobin 9.3 g/dL (13.2-16.3); Mean Corpuscular Hemoglobin 30.3 pg (27-33); Mean Corpuscular Hgb Conc 33.5 g/dL (31-36); Mean Corpuscular Volume 90.4 fL (80-97); Mean Platelet Volume 6.7 fL (7.5-11.2); Platelet Count 285 10^3/uL (150-450); Red Blood Count 3.09 10^6/uL (4.06-5.63); White Blood Count 4.6 10^3/uL (3.6-10.2)
[2024-03-17 06:16] LABS: Calcium 8.4 mg/dL (8.6-10.3); Creatinine, Serum 0.9 mg/dL (0.67-1.17); Magnesium 2.1 mg/dL (1.9-2.7); Potassium 4.3 mmol/L (3.5-5.0)
[2024-03-17] MEDS ORDERED: Senna TAB 8.6 mg TAB PO PRN (13:12)
[2024-03-17] MEDS ORDERED: Polyethylene Glycol 3350 17 GM PACKET PO PRN (13:13)
[2024-03-17] MEDS ORDERED: Polyethylene Glycol 3350 17 GM PACKET PO SCH (21:00)
[2024-03-18 09:16] VITALS: BP 111/74
== END 2024-03-18 10:57 | DRG 242 ==
LOC: EDHOLD 16:04 → ED 16:04 → SUATTDRO 03-12 01:49 → MEDTELE 03-12 12:02 → ICU 03-12 18:03 → SUATTDRO 03-13 09:51 → MEDTELE 03-14 00:51
PROVIDERS: ADMIT Student in an Organized Health Care Education/Training Program; ATTEND Hospitalist

== ENCOUNTER 2024-03-17 11:33 | Inpatient (IN) ==
[2024-03-18] MEDS ORDERED: Senna TAB 8.6 mg TAB PO PRN (12:07)
[2024-03-18] MEDS ORDERED: Magnesium Hydroxide LIQ 30 ML UDC PO PRN (12:07)
[2024-03-18] MEDS: Carbidopa/Levodop 25/100 MG TAB PO ONE (14:23)
[2024-03-18] MEDS: Enoxaparin 40 MG/0.4 ML SYR SUBCUT SCH (14:24)
[2024-03-18] MEDS: Carbidopa/Levodop 25/100 MG TAB PO SCH (16:38)
[2024-03-18] MEDS: CMC: Alfuzosin ER 10 mg TAB.ER (NF) 10 MG TAB.ER PO SCH (20:20)
[2024-03-18] MEDS: Carbidopa/Levodop CR 50/200 TAB.CR PO SCH (20:21)
[2024-03-18] MEDS: Potassium Chlor 10 meq TAB PO SCH (20:21)
[2024-03-19] MEDS: Aspirin EC 81 mg TAB.EC (enteric coated) PO SCH (08:55)
[2024-03-20 07:23] LABS: ABS Eosinophils 0.5 10^3/uL (0.0-0.5); ABS Lymphocytes 0.8 10^3/uL (1.0-4.8); ABS Monocytes 0.5 10^3/uL (0.0-1.1); ABS Neutrophils 2.3 10^3/uL (1.5-7.6); ABS Nucleated RBC 0.01 10^3/ul; Eosinophil % 11.3 %; Hematocrit 28.9 % (38-53); Hemoglobin 9.7 g/dL (13.2-16.3); Lymphocyte % 19.5 %; Mean Corpuscular Hemoglobin 30.2 pg (27-33); Mean Corpuscular Hgb Conc 33.5 g/dL (31-36); Mean Platelet Volume 6.8 fL (7.5-11.2); Nucleated Red Blood Cells % 0.3 %/100WBC (0.0-0.8); Platelet Count 262 10^3/uL (150-450); Red Blood Count 3.21 10^6/uL (4.06-5.63); Red Cell Distribution Width 18.4 % (12-17)
[2024-03-20 07:45] LABS: Albumin 3.2 g/dL (3.2-5.2); Albumin/Globulin Ratio 0.9 (1-3); Calcium 8.6 mg/dL (8.6-10.3); Creatinine, Serum 0.85 mg/dL (0.67-1.17); Globulin 3.6 g/dL (2-4); Potassium 4.2 mmol/L (3.5-5.0); Total Bilirubin 1.3 mg/dL (0.2-1.0); Total Protein 6.8 g/dL (6.4-8.9); eGFR CKD-EPI 89.5 (>60)
[2024-03-21] MEDS: Potassium Chlor 10 meq TAB PO SCH (09:26)
[2024-03-21] MEDS: Calcium Carb (TUMS) 500 mg CHEW TAB PO PRN (14:50)
[2024-03-24 07:41] LABS: Calcium 8.8 mg/dL (8.6-10.3); Creatinine, Serum 0.89 mg/dL (0.67-1.17); Potassium 4.2 mmol/L (3.5-5.0); eGFR CKD-EPI 88.3 (>60)
[2024-03-25] MEDS: Enoxaparin 40 MG/0.4 ML SYR SUBCUT SCH (21:23)
[2024-03-27 05:48] VITALS: BP 119/61
[2024-03-27 06:15] LABS: ABS Eosinophils 0.3 10^3/uL (0.0-0.5); ABS Monocytes 0.5 10^3/uL (0.0-1.1); ABS Neutrophils 1.8 10^3/uL (1.5-7.6); ABS Nucleated RBC 0.01 10^3/ul; Hematocrit 32.9 % (38-53); Hemoglobin 10.6 g/dL (13.2-16.3); Lymphocyte % 26.8 %; Mean Corpuscular Hgb Conc 32.1 g/dL (31-36); Mean Corpuscular Volume 90.4 fL (80-97); Mean Platelet Volume 7.1 fL (7.5-11.2); Nucleated Red Blood Cells % 0.2 %/100WBC (0.0-0.8); Platelet Count 226 10^3/uL (150-450); Red Blood Count 3.64 10^6/uL (4.06-5.63); White Blood Count 3.7 10^3/uL (3.6-10.2)
[2024-03-27 06:38] LABS: Albumin 3.3 g/dL (3.2-5.2); Albumin/Globulin Ratio 0.8 (1-3); Calcium 8.9 mg/dL (8.6-10.3); Creatinine, Serum 0.85 mg/dL (0.67-1.17); Potassium 3.8 mmol/L (3.5-5.0); Total Bilirubin 1.5 mg/dL (0.2-1.0); Total Protein 7.3 g/dL (6.4-8.9); eGFR CKD-EPI 89.5 (>60)
== END 2024-03-27 12:27 | disposition home or self-care (01) | DRG 309 ==
LOC: PMRU 03-18 10:58
PROVIDERS: ADMIT Physical Medicine & Rehabilitation; ATTEND Physical Medicine & Rehabilitation

== ENCOUNTER 2024-07-21 20:55 | Inpatient (IN) ==
[2024-07-21 21:34] LABS: ABS Lymphocytes 0.5 10^3/uL (1.0-4.8); ABS Monocytes 0.3 10^3/uL (0.0-1.1); ABS Neutrophils 2.6 10^3/uL (1.5-7.6); ABS Nucleated RBC 0.02 10^3/ul; Eosinophil % 1.4 %; Hematocrit 32.5 % (38-53); Hemoglobin 10.7 g/dL (13.2-16.3); Lymphocyte % 14.8 %; Mean Corpuscular Hemoglobin 29.6 pg (27-33); Mean Corpuscular Hgb Conc 33.1 g/dL (31-36); Mean Corpuscular Volume 89.4 fL (80-97); Mean Platelet Volume 7.5 fL (7.5-11.2); Nucleated Red Blood Cells % 0.7 %/100WBC (0.0-0.8); Platelet Count 73 10^3/uL (150-450); Red Blood Count 3.63 10^6/uL (4.06-5.63); Red Cell Distribution Width 22.4 % (12-17); White Blood Count 3.4 10^3/uL (3.6-10.2)
[2024-07-21 21:38] LABS: Activated Partial Thrombo Time 58.6 seconds (26.0-38.0); INR 1.39 (0.85-1.14)
[2024-07-21 21:57] LABS: Urine Appearance Clear; Urine Bilirubin Negative (Negative); Urine Blood 2+ (Negative); Urine Color Yellow; Urine Glucose Negative (Negative); Urine Ketones Negative (Negative); Urine Nitrite Negative (Negative); Urine Protein Trace (Negative); Urine Specific Gravity 1.012 (1.002-1.030); Urine Urobilinogen Negative (Negative)
[2024-07-21 22:08] LABS: Urine Bacteria Absent /HPF (Absent); Urine Red Blood Cell 3+(>10/hpf) /HPF (0-Trace); Urine Squamous Epithelial Cell Present /HPF (Absent); Urine White Blood Cell Trace(0-5/hpf) /HPF (0-Trace)
[2024-07-21 22:16] LABS: Albumin 3.9 g/dL (3.5-5.7); Albumin/Globulin Ratio 0.9 (1-3); C Reactive Protein 25.73 mg/L (<8.01); Calcium 9.7 mg/dL (8.6-10.3); Creatinine, Serum 1.37 mg/dL (0.67-1.17); Globulin 4.5 g/dL (2-4); Potassium 3.9 mmol/L (3.5-5.0); Total Bilirubin 1.8 mg/dL (0.2-1.0); Total Protein 8.4 g/dL (6.4-8.9); eGFR CKD-EPI 53.1 (>60)
[2024-07-21 23:13] LABS: High Sensitivity Troponin 1 Hr 10 pg/mL (<20)
[2024-07-22 02:15] LABS: Direct Bilirubin 0.4 mg/dL (0.03-0.18)
[2024-07-22 02:30] LABS: TSH Ultra Thyroid Stim Horm 29.8 mcIU/mL (0.34-5.60)
[2024-07-22 03:30] LABS: T4, Total 6.31 mcg/dL (6.09-12.23)
[2024-07-22 03:39] LABS: Ferritin 368.2 ng/mL (24-336)
[2024-07-22 05:01] LABS: Free T4 0.72 ng/dL (0.61-1.12)
[2024-07-22 06:26] LABS: Hematocrit 29.7 % (38-53); Hemoglobin 9.8 g/dL (13.2-16.3); Mean Corpuscular Hemoglobin 29.2 pg (27-33); Mean Corpuscular Volume 88.6 fL (80-97); Red Blood Count 3.35 10^6/uL (4.06-5.63); Red Cell Distribution Width 22.5 % (12-17); White Blood Count 3.7 10^3/uL (3.6-10.2)
[2024-07-22 06:28] LABS: INR 1.4 (0.85-1.14)
[2024-07-22] MEDS: cefTRIAXone 1 gm/50 mL D5W 1 GM/50 ML BAG IV SCH ×2 (06:41→07:38)
[2024-07-22] MEDS: Hydrocortisone INJ 100 MG VIAL IV SCH (06:41)
[2024-07-22] MEDS: Azithromycin 500 mg/250 ml NS 500 MG/250 ML BAG IVPB SCH ×2 (06:41→07:38)
[2024-07-22 06:45] LABS: Albumin 3.6 g/dL (3.5-5.7); Albumin/Globulin Ratio 0.9 (1-3); Calcium 9.3 mg/dL (8.6-10.3); Creatinine, Serum 1.5 mg/dL (0.67-1.17); Globulin 4.1 g/dL (2-4); Potassium 4.2 mmol/L (3.5-5.0); Total Bilirubin 1.6 mg/dL (0.2-1.0); Total Protein 7.7 g/dL (6.4-8.9); eGFR CKD-EPI 47.7 (>60)
[2024-07-22] MEDS: Levothyroxine 100 MCG/5 ML VIAL IV SCH (06:47)
[2024-07-22 07:10] LABS: ABS Lymphocytes 0.3 10^3/uL (1.0-4.8); ABS Monocytes 0.3 10^3/uL (0.0-1.1); ABS Nucleated RBC 0.03 10^3/ul; Eosinophil % 0.3 %; Lymphocyte % 8.3 %; Mean Platelet Volume 7.8 fL (7.5-11.2); Nucleated Red Blood Cells % 0.9 %/100WBC (0.0-0.8); Platelet Count 77 10^3/uL (150-450)
[2024-07-22 07:15] LABS: Thyroglobulin Antibody II < 0.9 IU/mL (<4.0); Thyroid Peroxidase Antibodies < 0.25 IU/mL (<9)
[2024-07-22 09:37] LABS: HDL Cholesterol 37.3 mg/dL
[2024-07-22] MEDS: Carbidopa/Levodop 25/100 MG TAB PO SCH (09:52)
[2024-07-22] MEDS: Heparin 5000 UNITS/ML 1 mL VIAL SUBCUT SCH (11:19)
[2024-07-22] MEDS: Carbidopa/Levodop CR 50/200 TAB.CR PO SCH (11:21)
[2024-07-22] MEDS: Potassium Chlor 10 meq TAB PO SCH (11:25)
[2024-07-22] MEDS: Lactated Ringers 1000 ml BAG 1,000 ML IV ONE (16:05)
[2024-07-22] MEDS: CMCS: Alfuzosin ER 10 mg TAB.ER (NF) 10 MG TAB.ER PO SCH (16:26)
[2024-07-22] MEDS: Nystatin TOP POWDER 15 GM BTL TOPICAL SCH (21:40)
[2024-07-23] MEDS: Magic MouthWash2-BEN/MAAL/LIDO/NYST 240 ML BTL (alt formulation) SWISH SPIT SCH (04:47)
[2024-07-23 05:01] LABS: ABS Lymphocytes 0.9 10^3/uL (1.0-4.8); ABS Monocytes 0.7 10^3/uL (0.0-1.1); ABS Neutrophils 3.5 10^3/uL (1.5-7.6); ABS Nucleated RBC 0.04 10^3/ul; Eosinophil % 0.7 %; Hematocrit 31.5 % (38-53); Hemoglobin 10.5 g/dL (13.2-16.3); Lymphocyte % 16.9 %; Mean Corpuscular Hemoglobin 29.7 pg (27-33); Mean Corpuscular Hgb Conc 33.2 g/dL (31-36); Mean Corpuscular Volume 89.4 fL (80-97); Mean Platelet Volume 7.9 fL (7.5-11.2); Nucleated Red Blood Cells % 0.9 %/100WBC (0.0-0.8); Platelet Count 85 10^3/uL (150-450); Red Blood Count 3.52 10^6/uL (4.06-5.63); Red Cell Distribution Width 22.4 % (12-17); White Blood Count 5.1 10^3/uL (3.6-10.2)
[2024-07-23 05:23] LABS: Calcium 9.2 mg/dL (8.6-10.3); Creatinine, Serum 1.55 mg/dL (0.67-1.17); Potassium 3.9 mmol/L (3.5-5.0); eGFR CKD-EPI 45.8 (>60)
[2024-07-23 06:24] LABS: Anisocytosis 2+
[2024-07-23] MEDS: Tranexamic Acid 1,000 MG/10 ML SDV TOPICAL ONE (06:53)
[2024-07-23 10:31] LABS: Albumin 3.5 g/dL (3.5-5.7); Albumin/Globulin Ratio 0.8 (1-3); Direct Bilirubin 0.2 mg/dL (0.03-0.18); Globulin 4.2 g/dL (2-4); Indirect Bilirubin 1.1 mg/dL (0.3-1.0); Total Bilirubin 1.3 mg/dL (0.2-1.0); Total Protein 7.7 g/dL (6.4-8.9)
[2024-07-23 11:45] LABS: Platelet Count 80 10^3/ul (150-450)
[2024-07-23 12:02] LABS: INR 1.44 (0.85-1.14)
[2024-07-23 12:06] LABS: Immature Retic Fraction 0.23
[2024-07-23 12:11] LABS: Corrected Retic Count 1.1 % (0.5-2.2); Hematocrit for Retic CNT 31.5 % (38-53); RBC Retic Count 3.52 10^6/ul (4.06-5.63)
[2024-07-23 12:19] LABS: Schistocytes ABSENT
[2024-07-23] MEDS: Pantoprazole VIAL 40 MG VIAL IV SCH (13:02)
[2024-07-24] MEDS ORDERED: Ondansetron 4 mg VIAL 2 MG/ML 2 ml VIAL IV PRN (16:54)
[2024-07-24] MEDS ORDERED: Senna TAB 8.6 mg TAB PO PRN (16:54)
[2024-07-24] MEDS ORDERED: Morphine 2 MG/ML SYRINGE IV PRN (16:54)
[2024-07-24] MEDS ORDERED: Polyethylene Glycol 3350 17 GM PACKET PO PRN (16:54)
[2024-07-24] MEDS: Levothyroxine 100 MCG/5 ML VIAL SCH (18:04)
[2024-07-25 00:08] LABS: Anaplasma phagocytophilum Negative (Negative); B. miyamotoi PCR, B Negative (Negative); Babesia divergens/MO-1 Negative (Negative); Babesia ducani Negative (Negative); Ehrlichia chaffeensis Negative (Negative); Ehrlichia ewingii/canis Negative (Negative); Ehrlichia muris eauclairensis Negative (Negative)
[2024-07-25] MEDS ORDERED: Lorazepam PYXIS KEY PRN ×2 (05:27→10:45)
[2024-07-25] MEDS: LORazepam 2 mg VIAL 1 ml IM PRN (05:46)
[2024-07-25] MEDS: LORazepam 2 mg VIAL 1 ml IV PUSH PRN (05:46)
[2024-07-25] MEDS ORDERED: Ondansetron ODT 4 mg TAB 4 MG TAB SL PRN (07:28)
[2024-07-25] MEDS: Morphine ORAL CONCENTRATE 5 MG/0.25 ML ORAL.SYRIN SL ONE (07:31)
[2024-07-25] MEDS: Morphine ORAL CONCENTRATE 5 MG/0.25 ML ORAL.SYRIN SL PRN (08:52)
[2024-07-25] MEDS ORDERED: Potassium Chloride LIQUID 20 MEQ/15 ML LIQUID PO SCH (09:00)
[2024-07-25] MEDS ORDERED: LORazepam 2 mg VIAL 1 ml IV PUSH PRN (10:45)
[2024-07-25] MEDS ORDERED: Midazolam 2 mg/2 ml VIAL 1 mg/ml 2 ml VIAL (2 mg) IM PRN (10:50)
[2024-07-25] MEDS: diazePAM INJ CARPUJECT 5 MG/ML SYRINGE IM PRN (10:54)
[2024-07-25] MEDS: OLANZapine 10 mg TAB*ODT PO PRN ×2 (11:49→20:39)
[2024-07-25] MEDS: LORazepam 2 mg VIAL 1 ml IV PUSH ONE (12:29)
[2024-07-25] MEDS: diazePAM INJ CARPUJECT 5 MG/ML SYRINGE IM SCH (18:05)
[2024-07-27] MEDS: diazePAM INJ CARPUJECT 5 MG/ML SYRINGE IM SCH (18:05)
[2024-07-28 09:54] LABS: IgG Immunoblot Negative
[2024-07-28 09:55] LABS: IgM Immunoblot Negative
[2024-07-28] MEDS: Morphine ORAL CONCENTRATE 5 MG/0.25 ML ORAL.SYRIN SL PRN ×2 (15:29→17:26)
[2024-07-28] MEDS ORDERED: diazePAM INJ CARPUJECT 5 MG/ML SYRINGE IM PRN ×2 (16:51→16:53)
[2024-07-28] MEDS: Scopolamine 1 mg/72hr PATCH TRANSDERM SCH (18:09)
[2024-07-28] MEDS: diazePAM INJ CARPUJECT 5 MG/ML SYRINGE IM SCH (18:10)
[2024-07-29] MEDS: diazePAM INJ CARPUJECT 5 MG/ML SYRINGE IM PRN (16:09)
[2024-07-31] MEDS: Morphine ORAL CONCENTRATE 5 MG/0.25 ML ORAL.SYRIN SL PRN (14:14)
[2024-07-31 21:37] VITALS: BP 107/54
[2024-08-01] MEDS ORDERED: diazePAM INJ CARPUJECT 5 MG/ML SYRINGE IV PRN (00:55)
[2024-08-01] MEDS ORDERED: diazePAM INJ CARPUJECT 5 MG/ML SYRINGE IM PRN (02:15)
[2024-08-01] MEDS: Atropine 1% (ORAL/SL) 15 ML BTL SL PRN (02:34)
== END 2024-08-01 07:37 | disposition expired | DRG 643 ==
LOC: EDHOLD 20:55 → ED 20:55 → OBSVTOIN 07-22 01:47 → SUATTDRO 07-22 01:47 → EDHOLD 07-22 03:54 → MED 07-22 05:32
PROVIDERS: ADMIT Student in an Organized Health Care Education/Training Program; ATTEND Internal Medicine